=== PATIENT | female | born 1965 | race American Indian/Alaskan Native ===

== ENCOUNTER 2019-10-19 13:51 | Emergency (ER) | payer OTHER, MEDICAID, SELFPAY ==
[2019-10-19 13:56] VITALS: BP 202/92; PULSE 90; RESP 18; TEMP 36.7; O2SAT 97
--- NOTE | 2019-10-19 15:58 | DI.RAD.S_ITS ---
PROCEDURE: XR LUMBAR SPINE 2-3V INDICATIONS: non traumatic low back pain worse in right TECHNIQUE: 2 views of the lumbar spine were acquired. COMPARISON: [facility], , XR LUMBAR SPINE WITH OBLIQUES, 01/09/2018, 12:09. FINDINGS: Bones: No fracture or focal osseous destruction. Multilevel degenerative endplate sclerosis and spurring. Diffuse facet arthropathy. Mild lateral curvature of the spine. Moderate narrowing of the L5-S1 disc space. Mild to moderate narrowing of the L1-L2 and L2- L3 disc space. There is also lower thoracic spondylosis. Trace retrolisthesis of L1 on L2 and L2 on L3 Soft tissues: Overlying bowel gas pattern is normal. No suspicious soft tissue calcifications. IMPRESSION: Diffuse lumbar spondylosis and facet arthropathy, as pronounced at L5-S1. No interval change Dictated by: Rick Davis M.D. on 10/19/2019 at 16:43 Approved by: Rick Davis M.D. on 10/19/2019 at 16:46
[2019-10-19] MEDS: KETOROLAC 60 MG/2 ML VIAL 30 MG IM (16:17)
[2019-10-19] MEDS: CYCLOBENZAPRINE 10 MG TABLET PO (16:18)
[2019-10-19] MEDS: ACETAMINOPHEN 325 MG TABLET 650 MG PO (16:18)
[2019-10-19] MEDS: LIDOCAINE PATCH 1 EACH ADH..PATCH TOP (16:19)
[2019-10-19 16:35] VITALS: BP 181/81
[2019-10-19 16:42] VITALS: PULSE 71; RESP 16; O2SAT 100
--- NOTE | 2019-10-19 16:50 | ED.BACK ---
HPI - Back Pain/Injury <MARTHA Riggs - Last Filed: 10/19/19 23:32> General Chief Complaint: Back Pain/Injury Stated Complaint: pulled back hurting really bad Time Seen by Provider: 10/19/19 15:33 Source: patient Mode of arrival: Ambulatory Limitations: no limitations History of Present Illness HPI Narrative: This is a 54 year female, smoker, who presents to ED with chief complain of low back pain worsening on the right side for last 4 days. Patient reports she was moving a propane tank in her RV prior having low back pain. Patient reports pain increases with cough, elevating right-side arm, rotating/bending forward or extending her affected back. Patient denies saddle anesthesia, incontinence for urine or stool, increasing weakness to lower extremities. Patient denies urinary symptoms such as urgency, frequency, dysuria or hematuria. Patient has a history of lumbar diskectomy in 2001, left foot surgery, hypertension, diabetes, elevated lipids, kidney infection. She is currently sees pain specialist provider and takes oxycodone and pregabalin and her pain is not well managed and feels spasming on the low back. Patient uses a cane for ambulation usually. Related Data Home Medications Medication Instructions Recorded Confirmed bisoprolol fumarate 10 mg PO DAILY 10/19/19 10/19/19 cetirizine 10 mg PO DAILY 10/19/19 10/19/19 epinephrine 0.3 mg IM PRN PRN 10/19/19 10/19/19 glipizide 10 mg PO 10/19/19 losartan 50 mg PO DAILY 10/19/19 10/19/19 metformin 1,000 mg PO BID 10/19/19 10/19/19 morphine 30 mg PO Q12H 10/19/19 10/19/19 omeprazole 20 mg PO DAILY 10/19/19 10/19/19 oxycodone 5 mg PO TID 10/19/19 10/19/19 pregabalin 100 mg PO TID 10/19/19 10/19/19 rosuvastatin 40 mg 10/19/19 triamcinolone acetonide 1 applic TOPICAL BID 10/19/19 10/19/19 Previous Rx's Medication Instructions Recorded cyclobenzaprine 10 mg PO BID PRN #14 tab 10/19/19 lidocaine 1 patch TOP DAILY #30 each 10/19/19 Allergies Allergy/AdvReac Type Severity Reaction Status Date / Time amoxicillin Allergy Unknown Verified 10/19/19 14:00 cortisone AdvReac Unknown Verified 10/19/19 14:00 gabapentin AdvReac Unknown Verified 10/19/19 14:00 Review of Systems <ALESSIA RiggsP - Last Filed: 10/19/19 23:32> Review of Systems Narrative: General: Denies fever, chills, fatigue, malaise, sweats. HEENT: Denies sinus pain, ear pain, sore throat, difficulty swallowing, dizziness. Respiratory: Denies dyspnea, cough, wheezing, hemoptysis, sputum. Cardiovascular: Denies chest pain, palpitations, orthopnea, edema. Gastrointestinal: Denies nausea, vomiting, abdominal pain, diarrhea, constipation, melena. : Denies dysuria, frequency, incontinence, hematuria, urinary retention. Musculoskeletal: See HPI Skin: Denies rash, skin lesions, or other. Neurologic: Denies weakness, headache, numbness, change in speech, confusion, seizures, incoordination. Psychiatric: No concerning psychosocial issues. 12-point review of systems is negative except for those stated above. Patient History <ALESSIA RiggsP - Last Filed: 10/19/19 23:32> Social History Smoking Status: Current every day smoker Smoking Status: Current every day smoker alcohol intake frequency: 0-2 drinks per day Substance Use Type: does not use Exam <ALESSIA RiggsP - Last Filed: 10/19/19 23:32> Narrative Exam Narrative: General appearance: well developed, well nourished, in mild distress due to pain. Head: normocephalic, atraumatic, no scalp lesions, non-tender. ENT: Bilateral auditory canals and tympanic membranes clear. Hearing grossly intact. Nose without bleeding, purulent discharge, septal hematoma or deviation. Turbinate without erythema or swelling. Facial sinuses nontender to palpate. Mucous membrane moist, no mucosal lesion. Throat without erythema, tonsillar hypertrophy or exudate. Uvula in midline, airway patent. Neck/Thyroid: neck supple, full range of motion, no visible masses or meningeal signs. No JVD, non-tender without lymphadenopathy. Skin: no suspicious rashes, lesions over visible areas. Warm and dry and appropriate color for ethnicity. Heart: no clubbing, no cyanosis, no edema. S1 and S2 normal. RRR w/o murmurs, clicks, or bruits. Lungs: Breathing even and unlabored. No stridor. No accessory muscles used. Able to speak in full sentences. Chest: normal shape and expansion. Abdomen: non-obese, non-distended. Neurologic: alert and oriented. Cognitive exam, [employer] and PNS grossly intact on informal exam. Psych: good eye contact, normal affect. Initial Vital Signs Initial Vital Signs: Vital Signs Temperature 98.1 F 10/19/19 13:56 Pulse Rate 90 10/19/19 13:56 Respiratory Rate 18 10/19/19 13:56 Blood Pressure 202/92 H 10/19/19 13:56 Pulse Oximetry 97 10/19/19 13:56 Back/Spine/Pelvis Thoracic/Lumbar Spine: thoracic and lumbar spine normal to inspection, surgical scar(s) present (Lumbar region, without erythema or warmth.), No thoraco-lumbar ROM normal, bend over test abnormal, pain with thoraco-lumbar ROM, paraspinal tenderness, thoraco-lumbar ROM limited (Due to pain with forward flexion, rotation, extension), thoraco-lumbar spasm, lumbar spinal tenderness and straight leg raise positive (Right-sided) <Miles Kurtz MD - Last Filed: 10/26/19 17:58> Initial Vital Signs Initial Vital Signs: Vital Signs Temperature 98.1 F 10/19/19 13:56 Pulse Rate 90 10/19/19 13:56 Respiratory Rate 18 10/19/19 13:56 Blood Pressure 202/92 H 10/19/19 13:56 Pulse Oximetry 97 10/19/19 13:56 Scores <MARTHA Riggs - Last Filed: 10/19/19 23:32> GCS Rosenda coma scale eye opening: Spontaneous Rosenda coma scale verbal response: Orientated Rosenda coma scale motor response: Obey commands Donner coma scale total score: 15 Course <MARTHA Riggs - Last Filed: 10/19/19 23:32> Orders Ordered: Discontinued Medications Acetaminophen (Tylenol) 650 mg PO NOW ONE Stop: 10/19/19 15:59 Last Admin: 10/19/19 16:18 Dose: 650 mg Documented by: SHARRI Cyclobenzaprine HCl (Flexeril) 10 mg PO NOW ONE Stop: 10/19/19 15:59 Last Admin: 10/19/19 16:18 Dose: 10 mg Documented by: SHARRI Ketorolac Tromethamine (Toradol) 30 mg IM NOW ONE Stop: 10/19/19 15:59 Last Admin: 10/19/19 16:17 Dose: 30 mg Documented by: SHARRI Lidocaine (Lidoderm) 1 each TOP NOW ONE Stop: 10/19/19 15:59 Last Admin: 10/19/19 16:19 Dose: 1 each Documented by: SHARRI Vital Signs Vital signs: Vital Signs - 8 hr 10/19/19 16:35 10/19/19 16:42 10/19/19 18:02 Pulse Rate 71 75 Respiratory Rate 16 20 Blood Pressure 178/81 H Blood Pressure [Left Arm] 181/81 H Pulse Oximetry 100 98 <Miles Kurtz MD - Last Filed: 10/26/19 17:58> Orders Ordered: Discontinued Medications Acetaminophen (Tylenol) 650 mg PO NOW ONE Stop: 10/19/19 15:59 Last Admin: 10/19/19 16:18 Dose: 650 mg Documented by: SHARRI Cyclobenzaprine HCl (Flexeril) 10 mg PO NOW ONE Stop: 10/19/19 15:59 Last Admin: 10/19/19 16:18 Dose: 10 mg Documented by: SHARRI Ketorolac Tromethamine (Toradol) 30 mg IM NOW ONE Stop: 10/19/19 15:59 Last Admin: 10/19/19 16:17 Dose: 30 mg Documented by: SHARRI Lidocaine (Lidoderm) 1 each TOP NOW ONE Stop: 10/19/19 15:59 Last Admin: 10/19/19 16:19 Dose: 1 each Documented by: SHARRI Vital Signs Vital signs: Vital Signs - 8 hr 10/19/19 16:35 10/19/19 16:42 10/19/19 18:02 Pulse Rate 71 75 Respiratory Rate 16 20 Blood Pressure 178/81 H Blood Pressure [Left Arm] 181/81 H Pulse Oximetry 100 98 MDM - Back Pain/Injury <MARTHA Riggs - Last Filed: 10/19/19 23:32> Differential Diagnosis Differential diagnosis: Likely lumbar radiculopathy, sciatica, strain of lumbar region and pyelonephritis Medical Records Attestation: I reviewed the patient's medical records. Lab Data Labs: Urine Dip Bedside Urine Glucose 1000 mg/dl Bedside Urine Bilirubin - Negative Bedside Urine Ketone - Negative Urine Specific Preston 1.010 Bedside Urine Occult Blood - Negative Bedside Urine pH 6.0 Bedside Urine Protein - Negative Bedside Urine Urobilinogen - Negative Bedside Urine Nitrite - Negative Bedside Urine Leukocytes - Negative Esterase Imaging Data XR-Lumbar: Radiologist's Impression: [address] [address] XRay Report Signed Patient: Rosalinda Hammonds#: [id number] : 1965Acct:[id number] Age/Sex: 54 / FDate of Service: 10/19/19 Loc: ED Accession Number: [id number] Procedure: XR lumbar spine 2-3V Ordering Provider: Slim Velazquez PROCEDURE: XR LUMBAR SPINE 2-3V INDICATIONS: non traumatic low back pain worse in right TECHNIQUE: 2 views of the lumbar spine were acquired. COMPARISON: [facility], , XR LUMBAR SPINE WITH OBLIQUES, 01/09/2018, 12:09. FINDINGS: Bones: No fracture or focal osseous destruction. Multilevel degenerative endplate sclerosis and spurring. Diffuse facet arthropathy. Mild lateral curvature of the spine. Moderate narrowing of the L5-S1 disc space. Mild to moderate narrowing of the L1-L2 and L2- L3 disc space. There is also lower thoracic spondylosis. Trace retrolisthesis of L1 on L2 and L2 on L3 Soft tissues: Overlying bowel gas pattern is normal. No suspicious soft tissue calcifications. IMPRESSION: Diffuse lumbar spondylosis and facet arthropathy, as pronounced at L5-S1. No interval change Dictated by: Rick Davis M.D. on 10/19/2019 at 16:43 Approved by: Rick Davis M.D. on 10/19/2019 at 16:46 MDM Narrative Medical decision making narrative: This is a 54 year female who presents to ED with nontraumatic low back pain worse in right-sided with movements after she moved propane tank in 4 days ago. There is no neurological deficit, incontinence, weakness to lower extremities. Urine test was negative for infection or occult blood. Lumbar x-ray test showed diffuse lumbar spondylolysis and facet arthropathy bounced at L5 through S1. Patient was medicated with Flexeril, lidocaine patch, Tylenol and IM Toradol injection. Patient reports pain improved after these medications and discharged to home with lidocaine patch, Flexeril. Patient is already taking oxycodone and pregabalin for pain management. Advised to add Tylenol and ibuprofen as needed. Return precautions were discussed with the patient and advised to follow with PCP and referral to physical therapist and patient states she has an appointment for chiropractor in a few days. Patient verbalized understanding and in agreement with treatment plan. Patient's elevated blood pressure has improved after the pain was treated with medications. <Miles Kurtz MD - Last Filed: 10/26/19 17:58> Lab Data Labs: Urine Dip Bedside Urine Glucose 1000 mg/dl Bedside Urine Bilirubin - Negative Bedside Urine Ketone - Negative Urine Specific Preston 1.010 Bedside Urine Occult Blood - Negative Bedside Urine pH 6.0 Bedside Urine Protein - Negative Bedside Urine Urobilinogen - Negative Bedside Urine Nitrite - Negative Bedside Urine Leukocytes - Negative Esterase Discharge Plan Departure Patient Disposition: Home Clinical Impression: Strain of lumbar region Qualifiers: Encounter type: initial encounter Qualified Code(s): S39.012A - Strain of muscle, fascia and tendon of lower back, initial encounter Discharge Date/Time: 10/19/19 18:00 Activity Restrictions/Additional Instructions: You have been diagnosed with [low back pain. Show fractures or osseous lesions. X-ray test showed I fused lumbar spondylolysis and facet arthropathy (arthritis changes) as pronounced at L5 and S1. Urine test does not indicate infection or blood in your urine. However, urine shows glucose. Please monitor your diabetes]. What to do: *Take your medications as directed. Flexeril is for muscle relaxant in may cause drowsiness so please take precautions. Lidocaine patch for pain and this stays on for 12 hours and off for 12 hours. If your medical insurance does not cover for lidocaine patch, you can purchase [id number] for 4% patch. You can add [id number] Tylenol and in addition to your pain medications as needed. Please rest your back for acute pain but start stretching gently when acute pain subsides. This medication has been transmitted to [facility]. *Follow up with your primary care provider in 2-3 days, call for an appointment. Let them know you were seen in the ED and that we asked you to be seen in follow up. Please follow-up with chiropractor or physical therapist for an evaluation and treatment for back pain. *Return to ED if you have any new, worsening, or concerning symptoms, such as [chest pain, breathing difficulty, unable to tolerate fluids, weakness to her legs, numbness to her groin or incontinence problem, fever or any acute concerns]. Prescriptions: New lidocaine 5 % adhesive patch,medicated 1 patch TOP DAILY Qty: 30 RF: 0 cyclobenzaprine 10 mg tablet 10 mg PO BID PRN (Reason: muscle spasm) Qty: 14 RF: 0 No Action losartan 50 mg tablet 50 mg PO DAILY RF: 0 cetirizine 10 mg tablet 10 mg PO DAILY RF: 0 glipizide 10 mg tablet extended release 24hr 10 mg PO RF: 0 morphine 30 mg tablet extended release 30 mg PO Q12H RF: 0 bisoprolol fumarate 10 mg tablet 10 mg PO DAILY RF: 0 omeprazole 20 mg capsule,delayed release(DR/EC) 20 mg PO DAILY RF: 0 epinephrine 0.3 mg/0.3 mL auto-injector 0.3 mg IM PRN PRN (Reason: Allergic Reaction) RF: 0 metformin 500 mg tablet extended release 24 hr 1,000 mg PO BID RF: 0 oxycodone 5 mg tablet 5 mg PO TID RF: 0 rosuvastatin 20 mg tablet 40 mg RF: 0 pregabalin 100 mg capsule 100 mg PO TID RF: 0 triamcinolone acetonide 0.1 % cream 1 applic TOPICAL BID RF: 0
[2019-10-19 18:02] VITALS: BP 178/81; PULSE 75; RESP 20; O2SAT 98
--- NOTE | 2019-10-19 18:03 | PC.NURSE ---
Patient states that her friend is here to pick her up
== END 2019-10-19 18:00 | disposition home or self-care (01) ==
PROVIDERS: Emergency Provider Nurse Practitioner Family
DX: S39.012A Strain of muscle, fascia and tendon of lower back, initial encounter (principal); M47.816 Spondylosis without myelopathy or radiculopathy, lumbar region
CPT/HCPCS: 72100; 81003; 96372; 99283; 99284; J1885

== ENCOUNTER 2019-12-18 11:03 | Emergency (ER) | payer OTHER, MEDICAID, SELFPAY ==
[2019-12-18 11:25] VITALS: BP 206/90; PULSE 80; RESP 12; TEMP 36.2; O2SAT 96
--- NOTE | 2019-12-18 11:40 | DI.RAD.S_ITS ---
PROCEDURE: XR CHEST 1V INDICATIONS: chest pain TECHNIQUE: One view of the chest was acquired. COMPARISON: None. FINDINGS: Surgical changes and devices: None. Lungs and pleura: Lungs are clear. No pleural effusions or pneumothorax. Mediastinum: Mediastinal contours appear normal. Heart size is normal. Bones and chest wall: No suspicious bony lesions. Overlying soft tissues appear unremarkable. IMPRESSION: Normal for age, source of current chest pain symptoms is not seen. Dictated by: Taco Warren M.D. on 12/18/2019 at 12:19 Approved by: Taco Warren M.D. on 12/18/2019 at 12:19
[2019-12-18 12:20] VITALS: BP 222/94; PULSE 90; RESP 14; O2SAT 99
[2019-12-18 12:26] LABS: Add Manual Diff / Slide Review NO; Basophils Absolute Auto 100 /uL (0-100); Basophils Percent Auto 1.3 % (0-2); Eosinophils Absolute Auto 100 /uL (0-450); Eosinophils Percent Auto 2.2 % (2-4); Hematocrit 39.6 % (36-46); Hemoglobin 13.7 g/dL (12.0-16.0); Lymphocytes Absolute Auto 1900 /uL (1100-4500); Lymphocytes Percent Auto 28.8 % (25-40); Mean Corpuscular HGB Conc 34.5 % (30-36); Mean Corpuscular Hemoglobin 32.7 PG (26-34); Mean Corpuscular Volume 94.6 fL (80-100); Monocytes Absolute Auto 500 /uL (0-900); Neutrophils Absolute Auto 3900 /uL (1500-7000); Neutrophils Percent Auto 59.7 % (50-75); Platelet Count 147 X10^3/uL (150-400); Red Blood Cell Count 4.19 X10^6/uL (4.0-5.2); White Blood Cell Count 6.5 X10^3/uL (4.5-11.0)
--- NOTE | 2019-12-18 12:31 | ED_ITS ---
HPI - General Adult General Chief complaint: Hypertension Stated complaint: HIGH BP/ NOT FEELING WELL Time Seen by Provider: 12/18/19 12:15 Mode of arrival: Ambulatory History of Present Illness HPI narrative: CC: High blood pressure. HPI: Patient is a 54-year-old female who states that she has intermittent hypertension with her blood pressure being 206/90 on admission. She states that she woke up and felt weird. She stated that she had some tingling in her head and arm freaked out when she checked her blood pressure. She has had some mild shortness of breath. She has had no chest pain today. She states that she has had some fluttering in her chest. And she had a minimal slight headache. She had no chest tightness. She had no nausea or vomiting. The patient is very anxious and worried because her blood pressure it keeps going up. Related Data Home Medications Medication Instructions Recorded Confirmed bisoprolol fumarate 10 mg PO DAILY 10/19/19 10/19/19 cetirizine 10 mg PO DAILY 10/19/19 10/19/19 epinephrine 0.3 mg IM PRN PRN 10/19/19 10/19/19 glipizide 10 mg PO 10/19/19 losartan 50 mg PO DAILY 10/19/19 10/19/19 metformin 1,000 mg PO BID 10/19/19 10/19/19 morphine 30 mg PO Q12H 10/19/19 10/19/19 omeprazole 20 mg PO DAILY 10/19/19 10/19/19 oxycodone 5 mg PO TID 10/19/19 10/19/19 pregabalin 100 mg PO TID 10/19/19 10/19/19 rosuvastatin 40 mg 10/19/19 triamcinolone acetonide 1 applic TOPICAL BID 10/19/19 10/19/19 Previous Rx's Medication Instructions Recorded cyclobenzaprine 10 mg PO BID PRN #14 tab 10/19/19 lidocaine 1 patch TOP DAILY #30 each 10/19/19 Allergies Allergy/AdvReac Type Severity Reaction Status Date / Time amoxicillin Allergy Unknown Verified 10/19/19 14:00 cortisone AdvReac Unknown Verified 10/19/19 14:00 gabapentin AdvReac Unknown Verified 10/19/19 14:00 Review of Systems Review of Systems Narrative: REVIEW OF SYSTEMS: CONSTITUTIONAL: The patient denies any fever chills or sweats. NEUROLOGICAL: She has had intermittent headaches but none at the present time. She denies any numbness but has had periodic tingling paresthesias without paralysis or paresis. EENT: She denies any dysphagia sore throat difficulty in swallowing. Last week she had and nose bleed. CARDIO-PULMONARY: She has had rare chest pain but none at the present time she has had pounding of her heart and shortness of breath without any cough or dizziness. GASTROINTESTINAL: She denies any significant abdominal pain nausea vomiting diarrhea. GENITAL URINARY: She has had no dysuria. No urinary symptoms Patient History Social History Smoking Status: Current every day smoker Smoking Status: Current every day smoker alcohol intake frequency: 0-2 drinks per day Substance Use Type: does not use Exam Narrative Exam Narrative: PHYSICAL EXAM: CONSTITUTIONAL: Awake, Alert, Oriented, Coherent, Cooperative in NAD. Does not appear toxic or ill. HEAD: AT/NC EENT: PERRL, FROM of eyes, no discharge, no nystagmus MOUTH:Oral mucosa is moist and pink, posterior pharynx is without erythema or exudate. The patient is wearing a mask. NECK: Supple, no obvious JVD, Trachea is midline without stridor, no palpable LN. SPINE: Palpationof the cervical, Thoracic, Lumbar or Sacral spine reveals no gross deformity or tenderness. No CVA tenderness. THORAX: No deformity, retractions, chest wall tenderness. LUNGS: Clear, symmetrical breath sounds without respiratory distress. HEART: Normal heart tones, regular rhythm and rate without murmur. ABDOMEN: Soft, non-tender, normal bowel sounds without guarding, rebound, rigidity or palpable mass. EXTREMITIES: No edema, deformity, tenderness or cyanosis. SKIN: No rash, bruising, petechiae or purpura. NEURO: Awake, alert, oriented, conversive, cranial nerves II-XII are symmetrical , moves all 4 extremities and is ambulatory. Initial Vital Signs Initial Vital Signs: Vital Signs Temperature 97.1 F L 12/18/19 11:25 Pulse Rate 80 12/18/19 11:25 Respiratory Rate 12 12/18/19 11:25 Blood Pressure 206/90 H 12/18/19 11:25 Pulse Oximetry 96 12/18/19 11:25 Course Course Course Narrative: 1231: The patient's chest x-ray is negative and does not show any acute cardiopulmonary pathology. The patient's blood pressure is 222/94. The patient will be administered p.o. Ativan 1 mg for the believe she is very anxious. She will be administered 10 mg of hydralazine IV push. Orders Ordered: ED Orders 12/18/19 11:40 XR chest 1V Stat 12/18/19 12:20 Complete Blood Count AUTO DIFF Stat Comprehensive Metabolic Panel Stat Lipase Stat Magnesium Stat Partial Thromboplastin Time Stat Prothrombin Time INR Stat Troponin & CK Cardiac Panel Stat Discontinued Medications Hydralazine HCl (Apresoline) 10 mg IV NOW ONE Stop: 12/18/19 12:31 Last Admin: 12/18/19 12:41 Dose: 10 mg Documented by: SHANKAR Sodium Chloride (Normal Saline 0.9%) 1,000 mls @ 125 mls/hr IV BOLUS ONE Stop: 12/18/19 20:32 Last Infusion: 12/18/19 13:32 Dose: 0 mls/hr Documented by: Admin: 12/18/19 12:42 Dose: 125 mls/hr Documented by: SHANKAR Lorazepam (Ativan) 1 mg PO NOW ONE Stop: 12/18/19 12:31 Last Admin: 12/18/19 12:40 Dose: 1 mg Documented by: SHANKAR Vital Signs Vital signs: Vital Signs - 8 hr 12/18/19 11:25 12/18/19 12:20 12/18/19 12:41 Temperature 97.1 F L Pulse Rate 80 90 70 Respiratory Rate 12 14 Blood Pressure 206/90 H 189/89 H Blood Pressure [Left Arm] 222/94 H Pulse Oximetry 96 99 12/18/19 13:05 Temperature Pulse Rate 81 Respiratory Rate 14 Blood Pressure Blood Pressure [Left Arm] 180/79 H Pulse Oximetry 99 Medical Decision Making Lab Data Result diagrams: 12/18/19 12:20 12/18/19 12:20 Labs: Lab Results 12/18/19 12/18/19 12/18/19 Range/Units 12:20 12:20 12:20 WBC 6.5 (4.5-11.0) X10^3/uL RBC 4.19 (4.0-5.2) X10^6/uL Hgb 13.7 (12.0-16.0) g/dL Hct 39.6 (36-46) % MCV 94.6 (80-100) fL MCH 32.7 (26-34) PG MCHC 34.5 (30-36) % RDW 13.0 (11.6-14.8) % Plt Count 147 L (150-400) X10^3/uL Neut % (Auto) 59.7 (50-75) % Lymph % (Auto) 28.8 (25-40) % [place] % (Auto) 8.0 (3-14) % Eos % (Auto) 2.2 (2-4) % Baso % (Auto) 1.3 (0-2) % Neut # (Auto) 3900 (3827-2077) /uL Lymph # (Auto) 1900 (7749-6118) /uL [place] # (Auto) 500 (0-900) /uL Eos # (Auto) 100 (0-450) /uL Baso # (Auto) 100 (0-100) /uL PT 12.0 (10.1-12.7) SECONDS INR 1.0 (0.9-1.3) APTT 35 (26.4-36.2) SECONDS Sodium 136 L (137-145) mmol/L Potassium 3.9 (3.4-5.1) mmol/L Chloride 103 (98-107) mmol/L Carbon Dioxide 26 (22-32) mmol/L BUN 6 L (7-17) mg/dL Creatinine 0.42 L (0.52-1.04) mg/dL Estimated GFR > 60.0 (>60) mL/min BUN/Creatinine Ratio 14.3 (6-22) Glucose 253 H (70-100) mg/dL Calcium 9.0 (8.4-10.2) mg/dL Magnesium 1.8 (1.6-2.3) mg/dL Total Bilirubin 0.6 (0.2-1.3) mg/dL AST 28 (14-36) IU/L ALT 20 (<35) IU/L Alkaline Phosphatase 95 (38-126) U/L Total Creatine Kinase 77 (30-135) U/L CK-MB (CK-2) TNP CK-MB (CK-2) Rel Index TNP Troponin I < 0.012 (0.01-0.034) ng/mL Total Protein 6.8 (6.3-8.2) g/dL Albumin 3.8 (3.5-5.0) g/dL Globulin 3.0 (1.7-4.1) g/dL Albumin/Globulin Ratio 1.3 (1.0-2.8) Lipase 62 (23-300) U/L Urine Dip Bedside Urine Glucose 250 mg/dl Bedside Urine Bilirubin - Negative Bedside Urine Ketone - Negative Urine Specific [place] 1.005 Bedside Urine Occult Blood - Negative Bedside Urine pH 6.0 Bedside Urine Protein - Negative Bedside Urine Urobilinogen - Negative Bedside Urine Nitrite - Negative Bedside Urine Leukocytes - Negative Esterase Point of care testing: Urine Dip Bedside Urine Glucose 250 mg/dl Bedside Urine Bilirubin - Negative Bedside Urine Ketone - Negative Urine Specific [place] 1.005 Bedside Urine Occult Blood - Negative Bedside Urine pH 6.0 Bedside Urine Protein - Negative Bedside Urine Urobilinogen - Negative Bedside Urine Nitrite - Negative Bedside Urine Leukocytes - Negative Esterase Discharge Plan Departure Patient Disposition: Home Clinical Impression: Anxiety Hypertension Qualifiers: Hypertension type: essential hypertension Qualified Code(s): I10 - Essential (primary) hypertension Discharge Date/Time: 12/18/19 13:32 Instructions: DI for High Blood Pressure, DI for Anxiety -- Adult Activity Restrictions/Additional Instructions: 1. Follow-up with your primary care physician. 2. When you check your blood pressure check and only once during the daytime and do not keep rechecking it. As she continued to recheck your blood pressure is going to go up. 3. Take your blood pressure medicine and record your blood pressure as instructed by your primary care physician and recorded in a log to take to your primary care physician. While you are on blood pressure medication your blood pressure is not always going to be low. Your blood pressure varies. If you become anxious nervous or upset your blood pressure is going to go high despite being on blood pressure medications. Periodically will have some minor shortness of breath in you may have brief periods of a headache. However if you develop severe headache that is up prolonged headache chest pain or continuous persistent shortness of breath with your high blood pressure changes in your vision you need to be seen in the emergency department otherwise you follow-up with your primary care physician. 4. Continue your current blood pressure medications. Prescriptions: No Action losartan 50 mg tablet 50 mg PO DAILY RF: 0 cetirizine 10 mg tablet 10 mg PO DAILY RF: 0 glipizide 10 mg tablet extended release 24hr 10 mg PO RF: 0 morphine 30 mg tablet extended release 30 mg PO Q12H RF: 0 bisoprolol fumarate 10 mg tablet 10 mg PO DAILY RF: 0 omeprazole 20 mg capsule,delayed release(DR/EC) 20 mg PO DAILY RF: 0 epinephrine 0.3 mg/0.3 mL auto-injector 0.3 mg IM PRN PRN (Reason: Allergic Reaction) RF: 0 metformin 500 mg tablet extended release 24 hr 1,000 mg PO BID RF: 0 oxycodone 5 mg tablet 5 mg PO TID RF: 0 rosuvastatin 20 mg tablet 40 mg RF: 0 pregabalin 100 mg capsule 100 mg PO TID RF: 0 triamcinolone acetonide 0.1 % cream 1 applic TOPICAL BID RF: 0 lidocaine 5 % adhesive patch,medicated 1 patch TOP DAILY Qty: 30 RF: 0 cyclobenzaprine 10 mg tablet 10 mg PO BID PRN (Reason: muscle spasm) Qty: 14 RF: 0
[2019-12-18 12:38] LABS: PTT Partial Thromboplastin Tim 35 SECONDS (26.4-36.2)
[2019-12-18 12:40] LABS: Alanine Aminotransferase 20 IU/L (<35); Albumin 3.8 g/dL (3.5-5.0); Albumin Globulin Ratio 1.3 (1.0-2.8); Alkaline Phosphatase 95 U/L (38-126); Aspartate Aminotransferase 28 IU/L (14-36); BUN Creatinine Ratio 14.3 (6-22); Bilirubin Total 0.6 mg/dL (0.2-1.3); Blood Urea Nitrogen 6 mg/dL (7-17); Carbon Dioxide 26 mmol/L (22-32); Chloride 103 mmol/L (98-107); Creatine Kinase 77 U/L (30-135); Estimated Glomerular Filt Rate > 60.0 mL/min (>60); Glucose 253 mg/dL (70-100); HEMOLYSIS < 15 (0-50); Lipase 62 U/L (23-300); Magnesium 1.8 mg/dL (1.6-2.3); Potassium 3.9 mmol/L (3.4-5.1); Sodium 136 mmol/L (137-145); Total Protein 6.8 g/dL (6.3-8.2)
[2019-12-18] MEDS: LORazepam 0.5 MG TABLET 1 MG PO (12:40)
[2019-12-18 12:41] VITALS: BP 189/89; PULSE 70
[2019-12-18] MEDS: HYDRALAZINE 20 MG/ML VIAL 10 MG IV (12:41)
[2019-12-18] MEDS: SODIUM CHLORIDE 0.9% 1,000 ML 125 ML IV (12:42)
[2019-12-18 12:51] LABS: Troponin I < 0.012 ng/mL (0.01-0.034)
[2019-12-18 13:05] VITALS: BP 180/79; PULSE 81; RESP 14; O2SAT 99
== END 2019-12-18 13:32 | disposition home or self-care (01) ==
PROVIDERS: Emergency Provider Emergency Medicine
DX: F41.9 Anxiety disorder, unspecified (principal); I10 Essential (primary) hypertension; R06.02 Shortness of breath
CPT/HCPCS: 36415; 71045; 80053; 81003; 82550; 83690; 83735; 84484; 85025; 85610; 85730; 93005; 96361; 96374; 99284; J0360

== ENCOUNTER → 2020-06-10 10:49 | Outpatient (CLI) | payer OTHER, MEDICAID, SELFPAY ==
--- NOTE | 2020-06-10 | DI.RAD.S_ITS ---
PROCEDURE: XR LUMBAR SPINE 2-3V INDICATIONS: NEUROPATHY, UE AND LE PAIN AND SHOULDER PROBLEMS AND DEPRESS TECHNIQUE: 3 views of the lumbar spine were acquired. COMPARISON: [facility], CR, XR LUMBAR SPINE 2-3V, 10/19/2019, 16:13. FINDINGS: Bones: 5 [id number] vertebrae are present. There is normal bony alignment, but degenerative disc disease appears to have mildly worsened at L5-S1 and now is moderately severe with further disc height reduction. Facet osteoarthritis is moderate in severity that L3-4 and L4-5 and moderately severe at L5-S1.. No vertebral body compression fractures. No suspicious bony lesions. Soft tissues: Overlying bowel gas pattern is normal. No suspicious soft tissue calcifications. IMPRESSION: Apparent progression of degenerative changes at the L5-S1 level where significant spinal and foraminal stenosis would now be expected, without subluxation. Follow-up by MR scanning may be warranted given the clear evidence of progression by plain film and symptomatology. Dictated by: Taco Warren M.D. on 06/10/2020 at 12:48 Approved by: Taco Warren M.D. on 06/10/2020 at 12:49
== END ==
DX: M54.5 Low back pain (principal); M47.817 Spondylosis without myelopathy or radiculopathy, lumbosacral region; M47.816 Spondylosis without myelopathy or radiculopathy, lumbar region; M51.37 Other intervertebral disc degeneration, lumbosacral region; G62.9 Polyneuropathy, unspecified; M79.603 Pain in arm, unspecified; M79.606 Pain in leg, unspecified
CPT/HCPCS: 72100

== ENCOUNTER 2020-06-26 14:29 | Emergency (ER) | payer OTHER, MEDICAID, SELFPAY ==
[2020-06-26 14:54] VITALS: BP 174/83; PULSE 88; RESP 15; TEMP 37; O2SAT 98; BMI 29.9
== END 2020-06-26 16:33 | disposition left against medical advice (07) ==
PROVIDERS: Emergency Provider Emergency Medicine
CPT/HCPCS: 99281

== ENCOUNTER → 2020-11-05 15:23 | Outpatient (CLI) | payer OTHER, MEDICAID, SELFPAY ==
[2020-11-05] MEDS: COVID-19 VACC #1, MRNA(MOD) 100 MCG/0.5 ML VIAL IM (15:35)
== END ==
PROVIDERS: Visit Provider Internal Medicine
DX: Z23 Encounter for immunization (principal)
CPT/HCPCS: 0011A; 91301

== ENCOUNTER → 2020-12-03 15:13 | Outpatient (CLI) | payer OTHER, MEDICAID, SELFPAY ==
[2020-12-03] MEDS: COVID-19 VACC #2, MRNA(MOD) 100 MCG/0.5 ML VIAL IM (15:23)
== END ==
PROVIDERS: Visit Provider Internal Medicine
DX: Z23 Encounter for immunization (principal)
CPT/HCPCS: 0012A; 91301

== ENCOUNTER → 2021-06-19 09:45 | Outpatient (CLI) | payer OTHER, MEDICAID, SELFPAY ==
[2021-06-19] MEDS: COVID-19 VACC #3, MRNA(MOD) 50 MCG/0.25 ML VIAL IM (09:51)
== END ==
PROVIDERS: Visit Provider Internal Medicine
DX: Z23 Encounter for immunization (principal)
CPT/HCPCS: 0013A; 91301

== ENCOUNTER 2022-01-11 14:34 | Emergency (ER) | payer OTHER, MEDICAID, SELFPAY ==
[2022-01-11 14:51] VITALS: BP 182/100; PULSE 110; RESP 18; TEMP 36.4; O2SAT 97; BMI 28.8
[2022-01-11] MEDS: ONDANSETRON 4 MG/2 ML INJ IV (15:30)
[2022-01-11 15:31] LABS: Add Manual Diff / Slide Review NO; Basophils Absolute Auto 100 /uL (0-100); Eosinophils Absolute Auto 0 /uL (0-450); Eosinophils Percent Auto 0.6 % (2-4); Hematocrit 44.7 % (36-46); Hemoglobin 15.7 g/dL (12.0-16.0); Lymphocytes Absolute Auto 1700 /uL (1100-4500); Lymphocytes Percent Auto 21.8 % (25-40); Mean Corpuscular HGB Conc 35.1 % (30-36); Mean Corpuscular Hemoglobin 32.4 PG (26-34); Mean Corpuscular Volume 92.4 fL (80-100); Monocytes Absolute Auto 500 /uL (0-900); Monocytes Percent Auto 6.3 % (3-14); Neutrophils Absolute Auto 5600 /uL (1500-7000); Neutrophils Percent Auto 70.3 % (50-75); Platelet Count 193 X10^3/uL (150-400); Red Blood Cell Count 4.84 X10^6/uL (4.0-5.2); Red Cell Distribution Width 12.6 % (11.6-14.8)
[2022-01-11 15:45] LABS: Alanine Aminotransferase 35 IU/L (<35); Albumin 4.7 g/dL (3.5-5.0); Albumin Globulin Ratio 1.3 (1.0-2.8); Alkaline Phosphatase 97 U/L (38-126); Aspartate Aminotransferase 28 IU/L (14-36); BUN Creatinine Ratio 11.5 (6-22); Bilirubin Total 0.8 mg/dL (0.2-1.3); Blood Urea Nitrogen 7 mg/dL (7-17); Calcium 9.6 mg/dL (8.4-10.2); Carbon Dioxide 31 mmol/L (22-32); Chloride 102 mmol/L (98-107); Estimated Glomerular Filt Rate > 60 mL/min (>60); Globulin 3.6 g/dL (1.7-4.1); Glucose 107 mg/dL (70-100); HEMOLYSIS < 15 (0-50); Potassium 3.6 mmol/L (3.4-5.1); Sodium 140 mmol/L (137-145); Total Protein 8.3 g/dL (6.3-8.2)
[2022-01-11] MEDS: PANTOPRAZOLE 40 MG VIAL IV (17:59)
[2022-01-11] MEDS: MAG HYDROX/ALUMINUM/SIMETH SUS 20 ML, LIDOCAINE VISCOUS 2% 15 ML PO (17:59)
--- NOTE | 2022-01-11 19:04 | ED_ITS ---
HPI - GI Bleed <Zakia Austin PA-C - Last Filed: 01/11/22 21:01> General Chief complaint: GI Bleed Stated complaint: Vomiting all day. Some blood came up, dizzy Time Seen by Provider: 01/11/22 17:28 Source: patient Mode of arrival: Ambulatory History of Present Illness HPI Narrative: 56-year-old female with past medical history Charles's esophagus presents to the ED with 1 day of epigastric pain, nausea, vomiting. Patient endorses a small amount, which she describes as a few drops of bright red blood in the vomit. Patient takes Pepcid AC daily for the Charles's esophagus. Patient was scheduled for an endoscopy for tomorrow, however was canceled due to her COVID diagnosis 2 weeks ago. The endoscopy has been rescheduled for the end of January. Patient states that the endoscopy is a follow-up to work up her ongoing swallowing problems. Patient denies fever, chills, chest pain, shortness of breath, diarrhea, dysuria, lightheadedness, dizziness, syncope. Related Data Home Medications Medication Instructions Recorded Confirmed bisoprolol fumarate 10 mg tablet 10 mg PO DAILY 10/19/19 10/19/19 cetirizine 10 mg tablet 10 mg PO DAILY 10/19/19 10/19/19 epinephrine 0.3 mg/0.3 mL 0.3 mg IM PRN PRN 10/19/19 10/19/19 injection, auto-injector glipizide 10 mg tablet, extended 10 mg PO 10/19/19 release 24 hr losartan 50 mg tablet 50 mg PO DAILY 10/19/19 10/19/19 metformin 500 mg tablet,extended 1,000 mg PO BID 10/19/19 10/19/19 release 24 hr morphine 30 mg tablet,extended 30 mg PO Q12H 10/19/19 10/19/19 release omeprazole 20 mg capsule,delayed 20 mg PO DAILY 10/19/19 10/19/19 release oxycodone 5 mg tablet 5 mg PO TID 10/19/19 10/19/19 pregabalin 100 mg capsule 100 mg PO TID 10/19/19 10/19/19 rosuvastatin 20 mg tablet 40 mg 10/19/19 triamcinolone acetonide 0.1 % 1 applic TOPICAL BID 10/19/19 10/19/19 topical cream Previous Rx's Medication Instructions Recorded cyclobenzaprine 10 mg tablet 10 mg PO BID PRN #14 tab 10/19/19 lidocaine 5 % topical patch 1 patch TOP DAILY #30 each 10/19/19 ondansetron 4 mg disintegrating 4 mg PO Q8HR #14 tab 01/11/22 tablet Allergies Allergy/AdvReac Type Severity Reaction Status Date / Time amoxicillin Allergy Unknown Verified 01/11/22 14:55 cortisone AdvReac Unknown Verified 01/11/22 14:55 gabapentin AdvReac Unknown Verified 01/11/22 14:55 Review of Systems <Zakia Austin PA-C - Last Filed: 01/11/22 21:01> Review of Systems ROS Unobtainable: All systems reviewed & are unremarkable except as noted in HPI and below Constitutional Constitutional: Denies chills, Denies fatigue, Denies fever(s), Denies frequent falls, Denies lethargy and Denies weakness Eyes Eyes: Denies change in vision, Denies eye discharge, Denies irritation and Denies loss of vision ENT Ears, Nose, Mouth, and Throat: Denies change in voice, Denies dizziness, Denies neck pain, Denies sore throat and Denies throat swelling Cardiovascular Cardiovascular: Denies chest pain, Denies irregular heart rhythm, Denies lightheadedness, Denies palpitations, Denies dyspnea, Denies dyspnea on exertion and Denies orthopnea Respiratory Respiratory: Denies cough, Denies dyspnea, Denies dyspnea on exertion and Denies wheezing Gastrointestinal Gastrointestinal: Reports abdominal pain, Denies change in bowel habits, Denies diarrhea, Reports nausea and Reports vomiting Genitourinary Genitourinary: Denies hematuria, Denies flank pain, Denies urinary incontinence and Denies urinary urgency Musculoskeletal Musculoskeletal: Denies back pain, Denies muscle weakness, Denies neck pain, Denies numbness and Denies tingling Integumentary/Breasts Skin/Breast: Denies pruritus, Denies erythema, Denies rash and Denies wounds Neurologic Neurologic: Denies behavioral changes, Denies confusion, Denies dizziness, Denies frequent falls, Denies loss of vision, Denies numbness, Denies tingling and Denies weakness Psychiatric Psychiatric: Denies anxiety, Denies behavioral changes, Denies confusion, Denies depression, Denies homicidal ideation and Denies suicidal ideation Endocrine Endocrine: Denies fatigue, Denies flushing and Denies palpitations Hematologic/Lymphatic Hematologic/Lymphatic: Denies easy bruising Allergic/Immunologic Allergic/Immunologic: Denies urticaria, Denies throat swelling and Denies wheezing Patient History <Zakia Austin PA-C - Last Filed: 01/11/22 21:01> Social History Smoking Status: Current every day smoker Smoking Status: Current every day smoker alcohol intake frequency: holidays/special occasions only Substance Use Type: does not use Exam <Zakia Austin PA-C - Last Filed: 01/11/22 21:01> Narrative Exam Narrative: Const General:?cooperative, healthy appearing and comfortable [facility] Head:?normal to inspection Ears:?hearing grossly normal bilaterally Nose:?external nose normal Face and sinus:?normal facial exam and sinuses nontender Mouth:?oral mucosae normal Throat:?posterior oropharynx normal Eyes General:?appearance normal, both eyes and all related structures Neck Neck:?normal visual inspection and no lymphadenopathy noted Resp Effort & Inspection:?normal respiratory effort Auscultation:?clear to auscultation bilaterally Cardio Rate:?regular rate Rhythm:?regular rhythm GI Abdomen is soft, nondistended. Tender to palpation in the epigastric region Neuro General:?patient alert, patient awake and patient oriented x3 Initial Vital Signs Initial Vital Signs: Vital Signs Temperature 97.6 F 01/11/22 14:51 Pulse Rate 110 H 01/11/22 14:51 Respiratory Rate 18 01/11/22 14:51 Blood Pressure 182/100 H 01/11/22 14:51 Pulse Oximetry 97 01/11/22 14:51 <Natividad Collado DO - Last Filed: 01/13/22 07:14> Initial Vital Signs Initial Vital Signs: Vital Signs Temperature 97.6 F 01/11/22 14:51 Pulse Rate 110 H 01/11/22 14:51 Respiratory Rate 18 01/11/22 14:51 Blood Pressure 182/100 H 01/11/22 14:51 Pulse Oximetry 97 01/11/22 14:51 Course <Zakia Austin PA-C - Last Filed: 01/11/22 21:01> Orders Ordered: Discontinued Medications Al Hydrox/Mg Hydrox/Simethicone 20 ml/ Lidocaine HCl 15 ml 0 ml PO NOW ONE Stop: 01/11/22 17:41 Last Admin: 01/11/22 17:59 Dose: 30 ml Documented by: CHRISTINE Ondansetron HCl (Ondansetron 4 Mg/2 Ml Inj) 4 mg IV NOW ONE Stop: 01/11/22 14:56 Last Admin: 01/11/22 15:30 Dose: 4 mg Documented by: CHRISTINE Pantoprazole Sodium (Pantoprazole 40 Mg Vial) 40 mg IV NOW ONE Stop: 01/11/22 17:38 Last Admin: 01/11/22 17:59 Dose: 40 mg Documented by: CHRISTINE Vital Signs Vital signs: Vital Signs - 8 hr 01/11/22 14:51 Temperature 97.6 F Pulse Rate 110 H Respiratory Rate 18 Blood Pressure 182/100 H Pulse Oximetry 97 <Natividad Collado DO - Last Filed: 01/13/22 07:14> Orders Ordered: Discontinued Medications Al Hydrox/Mg Hydrox/Simethicone 20 ml/ Lidocaine HCl 15 ml 0 ml PO NOW ONE Stop: 01/11/22 17:41 Last Admin: 01/11/22 17:59 Dose: 30 ml Documented by: CHRISTINE Ondansetron HCl (Ondansetron 4 Mg/2 Ml Inj) 4 mg IV NOW ONE Stop: 01/11/22 14:56 Last Admin: 01/11/22 15:30 Dose: 4 mg Documented by: CHRISTINE Pantoprazole Sodium (Pantoprazole 40 Mg Vial) 40 mg IV NOW ONE Stop: 01/11/22 17:38 Last Admin: 01/11/22 17:59 Dose: 40 mg Documented by: CHRISTINE Vital Signs Vital signs: Vital Signs - 8 hr 01/11/22 14:51 Temperature 97.6 F Pulse Rate 110 H Respiratory Rate 18 Blood Pressure 182/100 H Pulse Oximetry 97 MDM - GI Bleed <Zakia Austin PA-C - Last Filed: 01/11/22 21:01> Medical Records Attestation: I reviewed the patient's medical records. Lab Data Attestation: I reviewed the patient's lab results. Lab results narrative: Labs within normal limits Result diagrams: 01/11/22 15:18 01/11/22 15:18 Labs: Lab Results 01/11/22 01/11/22 Range/Units 15:18 15:18 WBC 8.0 (4.5-11.0) X10^3/uL RBC 4.84 (4.0-5.2) X10^6/uL Hgb 15.7 (12.0-16.0) g/dL Hct 44.7 (36-46) % MCV 92.4 (80-100) fL MCH 32.4 (26-34) PG MCHC 35.1 (30-36) % RDW 12.6 (11.6-14.8) % Plt Count 193 (150-400) X10^3/uL Neut % (Auto) 70.3 (50-75) % Lymph % (Auto) 21.8 L (25-40) % [place] % (Auto) 6.3 (3-14) % Eos % (Auto) 0.6 L (2-4) % Baso % (Auto) 1.0 (0-2) % Neut # (Auto) 5600 (7049-7464) /uL Lymph # (Auto) 1700 (7330-0145) /uL [place] # (Auto) 500 (0-900) /uL Eos # (Auto) 0 (0-450) /uL Baso # (Auto) 100 (0-100) /uL Sodium 140 (137-145) mmol/L Potassium 3.6 (3.4-5.1) mmol/L Chloride 102 (98-107) mmol/L Carbon Dioxide 31 (22-32) mmol/L BUN 7 (7-17) mg/dL Creatinine 0.61 (0.52-1.04) mg/dL Estimated GFR > 60 (>60) mL/min BUN/Creatinine Ratio 11.5 (6-22) Glucose 107 H (70-100) mg/dL Calcium 9.6 (8.4-10.2) mg/dL Total Bilirubin 0.8 (0.2-1.3) mg/dL AST 28 (14-36) IU/L ALT 35 H (<35) IU/L Alkaline Phosphatase 97 (38-126) U/L Total Protein 8.3 H (6.3-8.2) g/dL Albumin 4.7 (3.5-5.0) g/dL Globulin 3.6 (1.7-4.1) g/dL Albumin/Globulin Ratio 1.3 (1.0-2.8) MDM Narrative Medical decision making narrative: 56-year-old female with past medical history Charles's esophagus presents to the ED with 1 day of epigastric pain, nausea, vomiting. Concern for anemia versus GI bleed versus GERD versus gastritis versus exacerbation of Charles's esophagus. Will obtain labs, treat symptoms with use GI cocktail and Protonix. Labs were within normal limits, symptoms improved her with Protonix and GI cocktail. Patient's symptoms likely due to GERD/gastritis/esophagitis. Discharge patient home with GI follow-up, ED return precautions. Patient verbalized understanding. <Natividad Collado, DO - Last Filed: 01/13/22 07:14> Lab Data Labs: Lab Results 01/11/22 01/11/22 Range/Units 15:18 15:18 WBC 8.0 (4.5-11.0) X10^3/uL RBC 4.84 (4.0-5.2) X10^6/uL Hgb 15.7 (12.0-16.0) g/dL Hct 44.7 (36-46) % MCV 92.4 (80-100) fL MCH 32.4 (26-34) PG MCHC 35.1 (30-36) % RDW 12.6 (11.6-14.8) % Plt Count 193 (150-400) X10^3/uL Neut % (Auto) 70.3 (50-75) % Lymph % (Auto) 21.8 L (25-40) % [place] % (Auto) 6.3 (3-14) % Eos % (Auto) 0.6 L (2-4) % Baso % (Auto) 1.0 (0-2) % Neut # (Auto) 5600 (8341-2767) /uL Lymph # (Auto) 1700 (2391-3231) /uL [place] # (Auto) 500 (0-900) /uL Eos # (Auto) 0 (0-450) /uL Baso # (Auto) 100 (0-100) /uL Sodium 140 (137-145) mmol/L Potassium 3.6 (3.4-5.1) mmol/L Chloride 102 (98-107) mmol/L Carbon Dioxide 31 (22-32) mmol/L BUN 7 (7-17) mg/dL Creatinine 0.61 (0.52-1.04) mg/dL Estimated GFR > 60 (>60) mL/min BUN/Creatinine Ratio 11.5 (6-22) Glucose 107 H (70-100) mg/dL Calcium 9.6 (8.4-10.2) mg/dL Total Bilirubin 0.8 (0.2-1.3) mg/dL AST 28 (14-36) IU/L ALT 35 H (<35) IU/L Alkaline Phosphatase 97 (38-126) U/L Total Protein 8.3 H (6.3-8.2) g/dL Albumin 4.7 (3.5-5.0) g/dL Globulin 3.6 (1.7-4.1) g/dL Albumin/Globulin Ratio 1.3 (1.0-2.8) Discharge Plan Departure Patient Disposition: Home Clinical Impression: Epigastric abdominal pain Instructions: DI for Epigastric Pain Activity Restrictions/Additional Instructions: You were evaluated in the ED today for abdominal pain, vomiting. S were normal. Your symptoms improved with Protonix, Maalox, viscous lidocaine. You may continue to take Pepcid AC twice a day, omeprazole daily for your symptoms. Your symptoms are likely due to an exacerbation of acid reflux. Return to the ED if you have uncontrollable nausea, vomiting, you were unable to keep down fluids, you continue to vomit significant amounts of blood. Please follow-up with your GI specialist tomorrow. Prescriptions: New ondansetron 4 mg tablet,disintegrating 4 mg PO Q8HR Qty: 14 0RF No Action losartan 50 mg tablet 50 mg PO DAILY 0RF cetirizine 10 mg tablet 10 mg PO DAILY 0RF glipizide 10 mg tablet extended release 24hr 10 mg PO 0RF morphine 30 mg tablet extended release 30 mg PO Q12H 0RF Label Comments: take 1 tablet by mouth every 12 hours bisoprolol fumarate 10 mg tablet 10 mg PO DAILY 0RF Label Comments: take 1 tablet by mouth once daily omeprazole 20 mg capsule,delayed release(DR/EC) 20 mg PO DAILY 0RF epinephrine 0.3 mg/0.3 mL auto-injector 0.3 mg IM PRN PRN (Reason: Allergic Reaction) 0RF metformin 500 mg tablet extended release 24 hr 1,000 mg PO BID 0RF oxycodone 5 mg tablet 5 mg PO TID 0RF Label Comments: take 1 tablet by mouth three times a day rosuvastatin 20 mg tablet 40 mg 0RF pregabalin 100 mg capsule 100 mg PO TID 0RF triamcinolone acetonide 0.1 % cream 1 applic TOPICAL BID 0RF Label Comments: APPLY A THIN LAYER TO THE AFFECTED AREAS TWICE A DAY FOR 2 WEEKS lidocaine 5 % adhesive patch,medicated 1 patch TOP DAILY Qty: 30 0RF Rx Instructions: leave on most painful area for up to 12 hrs cyclobenzaprine 10 mg tablet 10 mg PO BID PRN (Reason: muscle spasm) Qty: 14 0RF Referrals: Ananya Barth PA-C [Primary Care Provider] - Visit Report Forms: Patient Portal/API <Natividad Collado DO - Last Filed: 01/13/22 07:14> Cosign ED Attending Berkleyature Attestation: I was immediately available in the department for consultation. Documentation has been reviewed.
== END 2022-01-11 18:45 | disposition home or self-care (01) ==
PROVIDERS: Emergency Medicine; Emergency Provider Student in an Organized Health Care Education/Training Program; PCP Physician Assistant Medical
DX: R10.13 Epigastric pain (principal); R11.2 Nausea with vomiting, unspecified
CPT/HCPCS: 36415; 80053; 85025; 93005; 93010; 96374; 96375; 99284; C9113; J2405

== ENCOUNTER 2022-05-11 07:57 | Emergency (ER) | payer OTHER, MEDICAID, SELFPAY ==
[2022-05-11] VITALS (8 sets, daily range): BP systolic 184–228; BP diastolic 83–108; PULSE 68–74; RESP 15–23; TEMP 36.7; O2SAT 96–98; BMI 29.3
--- NOTE | 2022-05-11 09:09 | ED_ITS ---
HPI - General Adult General Chief complaint: Hypertension Stated complaint: High BP- 220/110 Time Seen by Provider: 05/11/22 07:59 History of Present Illness HPI narrative: 57-year-old female smoker with history of hypertension, hyperlipidemia and diabetes presents at the request of her primary care provider for evaluation of elevated blood pressure. She had been relatively stable until recently and her primary care provider had switched her to valsartan which she 1st took on Tuesday but stopped after the 1st dose as it gave her rash and joint pain. Her primary care provider had called in another prescription that is waiting for her at the pharmacy but she is been without meds for many days and presents today because her PCP told her to come in if her blood pressure was over 220. In addition she has some frontal headache without obvious provocation, palliation or associated symptoms such as blurred vision, trouble with speech. She does have some tingling in her upper back and neck as well as fingertips but denies extremity weakness or dizziness. She states the headache seems to be related to elevated blood pressures, she is had chronic pain in her left shoulder that is sharp and stabbing and worse with range of motion and palpation which will be evaluated by her primary care provider at a scheduled appointment on . Related Data Home Medications Medication Instructions Recorded Confirmed bisoprolol fumarate 10 mg tablet 10 mg PO DAILY 10/19/19 10/19/19 cetirizine 10 mg tablet 10 mg PO DAILY 10/19/19 10/19/19 epinephrine 0.3 mg/0.3 mL 0.3 mg IM PRN PRN Allergic Reaction 10/19/19 10/19/19 injection, auto-injector glipizide 10 mg tablet, extended 10 mg PO 10/19/19 release 24 hr losartan 50 mg tablet 50 mg PO DAILY 10/19/19 10/19/19 metformin 500 mg tablet,extended 1,000 mg PO BID 10/19/19 10/19/19 release 24 hr morphine 30 mg tablet,extended 30 mg PO Q12H 10/19/19 10/19/19 release omeprazole 20 mg capsule,delayed 20 mg PO DAILY 10/19/19 10/19/19 release oxycodone 5 mg tablet 5 mg PO TID 10/19/19 10/19/19 pregabalin 100 mg capsule 100 mg PO TID 10/19/19 10/19/19 rosuvastatin 20 mg tablet 40 mg 10/19/19 triamcinolone acetonide 0.1 % 1 applic topical BID 10/19/19 10/19/19 topical cream Previous Rx's Medication Instructions Recorded cyclobenzaprine 10 mg tablet 10 mg PO BID PRN muscle spasm #14 10/19/19 tabs lidocaine 5 % topical patch 1 patch topical DAILY #30 ea 10/19/19 ondansetron 4 mg disintegrating 4 mg PO Q8HR #14 tabs 01/11/22 tablet Allergies Allergy/AdvReac Type Severity Reaction Status Date / Time amoxicillin Allergy Unknown Verified 05/11/22 09:10 cortisone AdvReac Unknown Verified 05/11/22 09:10 gabapentin AdvReac Unknown Verified 05/11/22 09:10 Review of Systems Review of Systems Narrative: GENERAL: Denies chills, fatigue, malaise, fever, sweats. HEENT: Denies sinus pain, ear pain, sore throat, difficulty swallowing, dizziness. RESPIRATORY: Denies dyspnea, cough, wheezing, hemoptysis, sputum. CARDIOVASCULAR: See HPI GASTROINTESTINAL: Denies nausea, vomiting, abdominal pain, diarrhea, constipation, melena. : Denies dysuria, frequency, incontinence, hematuria, urinary retention. MUSCULOSKELETAL: denies weakness, joint pain, or bony pain SKIN: Denies rash, skin lesions, or other NEUROLOGIC: See HPI PSYCHIATRIC: No concerning psychosocial issues. 12 point review of systems is negative except for those stated above Patient History Social History Smoking Status: Current every day smoker Smoking Status: Current every day smoker alcohol intake frequency: holidays/special occasions only Substance Use Type: does not use Exam Narrative Exam Narrative: GENERAL: [57] year old patient appears stated age. Well-developed patient, in mild distress. HEAD: Atraumatic. Normocephalic. EYES: Pupils equal round and reactive. Extraocular motions intact. No scleral icterus. No injection or drainage. ENT: Nose without bleeding, purulent drainage. Throat without erythema, tonsillar hypertrophy or exudate. Airway patent. NECK: Trachea midline. Non tender CARDIOVASCULAR: Regular rate and rhythm without murmurs, gallops, or rubs. RESPIRATORY: Clear to auscultation. Breath sounds equal bilaterally. No wheezes, rales, or rhonchi. GASTROINTESTINAL: Abdomen soft, non-tender, nondistended. EXTREMITIES: Left anterior shoulder tender to palpate, full but painful range of motion. No obvious deformity BACK: Nontender without deformity or crepitance. No flank tenderness. NEURO: AOx3. SKIN: No rash or erythema of visible areas Initial Vital Signs Initial Vital Signs: Vital Signs Temperature 98.1 F 05/11/22 09:05 Pulse Rate 71 05/11/22 09:05 Respiratory Rate 15 05/11/22 09:05 Blood Pressure 228/108 H 05/11/22 09:05 Pulse Oximetry 96 05/11/22 09:05 Oxygen Delivery Method 05/11/22 09:05 Course Orders Ordered: Discontinued Medications Labetalol HCl (Labetalol 20 Mg/4 Ml Syringe) 10 mg IV NOW ONE Stop: 05/11/22 09:10 Last Admin: 05/11/22 09:14 Dose: 10 mg Documented By: RADHA Spironolactone (Spironolactone 25 Mg Tablet) 25 mg PO NOW ONE Stop: 05/11/22 10:12 Last Admin: 05/11/22 10:32 Dose: 25 mg Documented By: RADHA(2) Reevaluation(s) Reevaluation #1: patient headache resolved, BP down to 180s. Vital Signs Vital signs: Vital Signs - 8 hr 05/11/22 09:05 05/11/22 09:14 05/11/22 09:06 Temperature 98.1 F Pulse Rate 71 72 Respiratory Rate 15 Blood Pressure 228/108 H 228/108 H 228/108 H Pulse Oximetry 96 Oxygen Delivery Method Room Air 05/11/22 09:06 05/11/22 09:30 05/11/22 09:31 Temperature Pulse Rate 74 71 Respiratory Rate 23 Blood Pressure 197/90 H Pulse Oximetry 96 98 Oxygen Delivery Method 05/11/22 09:31 05/11/22 10:00 05/11/22 10:01 Temperature Pulse Rate 74 68 Respiratory Rate 21 17 Blood Pressure 184/86 H Pulse Oximetry 98 97 Oxygen Delivery Method 05/11/22 10:01 Temperature Pulse Rate 69 Respiratory Rate Blood Pressure Pulse Oximetry 98 Oxygen Delivery Method Medical Decision Making Lab Data Result diagrams: 05/11/22 09:10 05/11/22 09:10 Labs: Lab Results 05/11/22 05/11/22 05/11/22 Range/Units 09:10 09:10 09:10 WBC 7.3 (4.5-11.0) X10^3/uL RBC 4.57 (4.0-5.2) X10^6/uL Hgb 14.9 (12.0-16.0) g/dL Hct 42.9 (36-46) % MCV 93.7 (80-100) fL MCH 32.5 (26-34) PG MCHC 34.7 (30-36) % RDW 13.3 (11.6-14.8) % Plt Count 162 (150-400) X10^3/uL Neut % (Auto) 62.9 (50-75) % Lymph % (Auto) 25.2 (25-40) % [place] % (Auto) 10.0 (3-14) % Eos % (Auto) 1.1 L (2-4) % Baso % (Auto) 0.8 (0-2) % Neut # (Auto) 4600 (5596-8200) /uL Lymph # (Auto) 1800 (8924-7098) /uL [place] # (Auto) 700 (0-900) /uL Eos # (Auto) 100 (0-450) /uL Baso # (Auto) 100 (0-100) /uL PT 12.4 (10.1-12.7) SECONDS INR 1.1 (0.9-1.3) Sodium 138 (137-145) mmol/L Potassium 3.8 (3.4-5.1) mmol/L Chloride 102 (98-107) mmol/L Carbon Dioxide 26 (22-32) mmol/L BUN 9 (7-17) mg/dL Creatinine 0.48 L (0.52-1.04) mg/dL Estimated GFR > 60 (>60) mL/min BUN/Creatinine Ratio 18.8 (6-22) Glucose 166 H (70-100) mg/dL Calcium 8.7 (8.4-10.2) mg/dL Total Bilirubin 0.8 (0.2-1.3) mg/dL AST 43 H (14-36) IU/L ALT 47 H (<35) IU/L Alkaline Phosphatase 91 (38-126) U/L Total Creatine Kinase 56 (30-135) U/L CK-MB (CK-2) TNP CK-MB (CK-2) Rel Index TNP Troponin I < 0.012 (0.01-0.034) ng/mL NT-Pro-B Natriuret Pep 1110 H (<125) pg/mL Total Protein 7.6 (6.3-8.2) g/dL Albumin 4.3 (3.5-5.0) g/dL Globulin 3.3 (1.7-4.1) g/dL Albumin/Globulin Ratio 1.3 (1.0-2.8) Discharge Plan Departure Patient Disposition: Home Clinical Impression: Hypertension Instructions: DI for High Blood Pressure Activity Restrictions/Additional Instructions: *You have been diagnosed with [hypertension] *What to do: *Please continue to take your regular medications as directed. [x ] New medication prescriptions sent to your pharmacy by your PCP and should be ready later today [ ] New medication written as a paper prescription [ ] No new medications given *Please follow up with your primary care provider in 2-3 days, call for an appointment. Let them know you were seen in the Emergency Department and that we ask that you be seen in follow up. We will electronically transmit a record of today's note if your PCP is in our system *If you do not have a primary care provider please contact the [facility] Resource line at [phone]. They will ask some questions about your medical history and help get you set up with a doctor in the community. *Return to Emergency Department if you should have any new, worsening or concerning symptoms Prescriptions: No Action losartan 50 mg tablet 50 mg PO DAILY cetirizine 10 mg tablet 10 mg PO DAILY glipizide 10 mg tablet extended release 24hr 10 mg PO morphine 30 mg tablet extended release 30 mg PO Q12H Label Comments: take 1 tablet by mouth every 12 hours bisoprolol fumarate 10 mg tablet 10 mg PO DAILY Label Comments: take 1 tablet by mouth once daily omeprazole 20 mg capsule,delayed release(DR/EC) 20 mg PO DAILY epinephrine 0.3 mg/0.3 mL auto-injector 0.3 mg IM PRN PRN (Reason: Allergic Reaction) metformin 500 mg tablet extended release 24 hr 1,000 mg PO BID oxycodone 5 mg tablet 5 mg PO TID Label Comments: take 1 tablet by mouth three times a day rosuvastatin 20 mg tablet 40 mg pregabalin 100 mg capsule 100 mg PO TID triamcinolone acetonide 0.1 % cream 1 applic TOPICAL BID Label Comments: APPLY A THIN LAYER TO THE AFFECTED AREAS TWICE A DAY FOR 2 WEEKS lidocaine 5 % adhesive patch,medicated 1 patch TOP DAILY Qty: 30 0RF Rx Instructions: leave on most painful area for up to 12 hrs cyclobenzaprine 10 mg tablet 10 mg PO BID PRN (Reason: muscle spasm) Qty: 14 0RF ondansetron 4 mg tablet,disintegrating 4 mg PO Q8HR Qty: 14 0RF Referrals: Ananya Barth PA-C [Primary Care Provider] - Visit Report Forms: Patient Portal/API
--- NOTE | 2022-05-11 09:09 | DI.RAD.S_ITS ---
PROCEDURE: XR CHEST 1V INDICATIONS: HIGH BLOOD PRESSURE TECHNIQUE: One view of the chest was acquired. COMPARISON: [facility], CR, XR CHEST 1V, 12/18/2019, 11:51. FINDINGS: Surgical changes and devices: None. Lungs and pleura: Lungs are clear. No pleural effusions or pneumothorax. Mediastinum: Mediastinal contours appear normal. Heart size is enlarged. Bones and chest wall: No suspicious bony lesions. Overlying soft tissues appear unremarkable. IMPRESSION: No acute pulmonary process. Dictated by: Natalie Nath M.D. on 05/11/2022 at 9:22 Approved by: Natalie Nath M.D. on 05/11/2022 at 9:22
[2022-05-11] MEDS: LABETALOL 20 MG/4 ML SYRINGE 10 MG IV (09:14)
[2022-05-11 09:37] LABS: Add Manual Diff / Slide Review NO; Basophils Absolute Auto 100 /uL (0-100); Basophils Percent Auto 0.8 % (0-2); Eosinophils Absolute Auto 100 /uL (0-450); Eosinophils Percent Auto 1.1 % (2-4); Hematocrit 42.9 % (36-46); Hemoglobin 14.9 g/dL (12.0-16.0); Lymphocytes Absolute Auto 1800 /uL (1100-4500); Lymphocytes Percent Auto 25.2 % (25-40); Mean Corpuscular HGB Conc 34.7 % (30-36); Mean Corpuscular Hemoglobin 32.5 PG (26-34); Mean Corpuscular Volume 93.7 fL (80-100); Monocytes Absolute Auto 700 /uL (0-900); Neutrophils Absolute Auto 4600 /uL (1500-7000); Neutrophils Percent Auto 62.9 % (50-75); Platelet Count 162 X10^3/uL (150-400); Red Blood Cell Count 4.57 X10^6/uL (4.0-5.2); Red Cell Distribution Width 13.3 % (11.6-14.8); White Blood Cell Count 7.3 X10^3/uL (4.5-11.0)
[2022-05-11 09:48] LABS: INR 1.1 (0.9-1.3); Prothrombin Time 12.4 SECONDS (10.1-12.7)
[2022-05-11 09:54] LABS: Alanine Aminotransferase 47 IU/L (<35); Albumin 4.3 g/dL (3.5-5.0); Albumin Globulin Ratio 1.3 (1.0-2.8); Alkaline Phosphatase 91 U/L (38-126); Aspartate Aminotransferase 43 IU/L (14-36); BUN Creatinine Ratio 18.8 (6-22); Bilirubin Total 0.8 mg/dL (0.2-1.3); Blood Urea Nitrogen 9 mg/dL (7-17); Calcium 8.7 mg/dL (8.4-10.2); Carbon Dioxide 26 mmol/L (22-32); Chloride 102 mmol/L (98-107); Creatine Kinase 56 U/L (30-135); Estimated Glomerular Filt Rate > 60 mL/min (>60); Globulin 3.3 g/dL (1.7-4.1); Glucose 166 mg/dL (70-100); HEMOLYSIS < 15 (0-50); Potassium 3.8 mmol/L (3.4-5.1); Sodium 138 mmol/L (137-145); Total Protein 7.6 g/dL (6.3-8.2)
[2022-05-11 10:06] LABS: NT-proBNP (BNP-Adult 18+) 1110 pg/mL (<125); Troponin I < 0.012 ng/mL (0.01-0.034)
[2022-05-11] MEDS: SPIRONOLACTONE 25 MG TABLET PO (10:32)
== END 2022-05-11 10:43 | disposition home or self-care (01) ==
PROVIDERS: Emergency Provider Emergency Medicine; PCP Physician Assistant Medical
DX: I10 Essential (primary) hypertension (principal)
CPT/HCPCS: 36415; 71045; 80053; 82550; 83880; 84484; 85025; 85610; 93005; 96374; 99284

== ENCOUNTER 2022-09-11 03:13 | Emergency (ER) | payer OTHER, MEDICAID, SELFPAY ==
[2022-09-11 03:41] VITALS: BP 150/71; PULSE 78; RESP 16; TEMP 35.9; O2SAT 97; BMI 30.7
== END 2022-09-11 04:17 | disposition left against medical advice (07) ==
PROVIDERS: Emergency Provider Emergency Medicine; PCP Physician Assistant Medical
DX: R06.02 Shortness of breath (principal)
CPT/HCPCS: 99281

== ENCOUNTER 2022-09-11 05:30 | Emergency (ER) | payer OTHER, MEDICAID, SELFPAY ==
[2022-09-11 06:15] VITALS: BP 153/73; PULSE 83; RESP 17; O2SAT 98; BMI 30.9
--- NOTE | 2022-09-11 07:32 | DI.RAD.S_ITS ---
PROCEDURE: XR CHEST 1V INDICATIONS: SOb TECHNIQUE: One view of the chest was acquired. COMPARISON: [facility], CR, XR CHEST 1V, 05/11/2022, 9:08. FINDINGS: Surgical changes and devices: None. Lungs and pleura: Lungs are clear. No pleural effusions or pneumothorax. Mediastinum: Mediastinal contours appear normal. Heart size is normal. Bones and chest wall: No suspicious bony lesions. Overlying soft tissues appear unremarkable. IMPRESSION: No acute cardiopulmonary abnormality. Dictated by: Agustin Mandel M.D. on 09/11/2022 at 7:50 Approved by: Agustin Mandel M.D. on 09/11/2022 at 7:51
--- NOTE | 2022-09-11 07:50 | ED.GENADULT ---
HPI - General Adult General Chief complaint: Shortness of Breath/Dyspnea Stated complaint: SOB Time Seen by Provider: 09/11/22 07:08 Source: patient Mode of arrival: Ambulatory Limitations: no limitations History of Present Illness HPI narrative: 57-year-old female. Is a smoker. Has neuropathy and restless leg. Takes daily pain medication. Is here for evaluation of shortness of breath. She states she woke up this morning and went to go use the restroom when she started to feel like that she could not take a deep breath. She is having a cough but this is not new. No fevers. She did vomit 1 time this morning. Had an episode of diarrhea as well. She was able to take her pain medication. She did come to the emergency department this morning and left without being seen. She states that it was because her legs were hurting so she went home and laid back in bed and was still short of breath so she came back to the emergency department. She denies chest pain. Related Data Home Medications Medication Instructions Recorded Confirmed bisoprolol fumarate 10 mg tablet 10 mg PO DAILY 10/19/19 10/19/19 cetirizine 10 mg tablet 10 mg PO DAILY 10/19/19 10/19/19 epinephrine 0.3 mg/0.3 mL 0.3 mg IM PRN PRN Allergic Reaction 10/19/19 10/19/19 injection, auto-injector glipizide 10 mg tablet, extended 10 mg PO 10/19/19 release 24 hr losartan 50 mg tablet 50 mg PO DAILY 10/19/19 10/19/19 metformin 500 mg tablet,extended 1,000 mg PO BID 10/19/19 10/19/19 release 24 hr morphine 30 mg tablet,extended 30 mg PO Q12H 10/19/19 10/19/19 release omeprazole 20 mg capsule,delayed 20 mg PO DAILY 10/19/19 10/19/19 release oxycodone 5 mg tablet 5 mg PO TID 10/19/19 10/19/19 pregabalin 100 mg capsule 100 mg PO TID 10/19/19 10/19/19 rosuvastatin 20 mg tablet 40 mg 10/19/19 triamcinolone acetonide 0.1 % 1 applic topical BID 10/19/19 10/19/19 topical cream Previous Rx's Medication Instructions Recorded cyclobenzaprine 10 mg tablet 10 mg PO BID PRN muscle spasm #14 10/19/19 tabs lidocaine 5 % topical patch 1 patch topical DAILY #30 ea 10/19/19 ondansetron 4 mg disintegrating 4 mg PO Q8HR #14 tabs 01/11/22 tablet Allergies Allergy/AdvReac Type Severity Reaction Status Date / Time amoxicillin Allergy Unknown Verified 05/11/22 09:10 cortisone AdvReac Unknown Verified 05/11/22 09:10 gabapentin AdvReac Unknown Verified 05/11/22 09:10 Review of Systems Constitutional Constitutional: Reports system reviewed and no additional complaints, except as documented Cardiovascular Cardiovascular: Reports system reviewed and no additional complaints, except as documented Respiratory Respiratory: Reports system reviewed and no additional complaints, except as documented Gastrointestinal Gastrointestinal: Reports system reviewed and no additional complaints, except as documented Genitourinary Genitourinary: Reports system reviewed and no additional complaints, except as documented Neurologic Neurologic: Reports system reviewed and no additional complaints, except as documented Hematologic/Lymphatic On Anticoagulants: No Patient History Medical History Neuropathy Social History Smoking Status: Current every day smoker Smoking Status: Current every day smoker alcohol intake frequency: a few times a week Substance Use Type: does not use Exam Initial Vital Signs Initial Vital Signs: Vital Signs Pulse Rate 83 09/11/22 06:15 Respiratory Rate 17 09/11/22 06:15 Blood Pressure 153/73 H 09/11/22 06:15 Pulse Oximetry 98 09/11/22 06:15 Oxygen Delivery Method 09/11/22 06:15 Const General: cooperative, comfortable and No ill appearing [facility] Head: normal to inspection and normocephalic Resp Effort & Inspection: normal respiratory effort Auscultation: clear to auscultation bilaterally Cardio Rate: regular rate Rhythm: regular rhythm GI Inspection: normal to inspection Skin General: no rashes or lesions noted Lesions: no lesions Neuro General: patient alert, patient awake and moves all extremities Extrem General: normal to inspection and capillary refill normal Course Orders Ordered: ED Orders 09/11/22 07:32 XR chest 1V Stat 09/11/22 08:19 Covid-19 + FLU A/B + RSV - PCR Stat 09/11/22 08:46 EKG-12 Lead Stat Discontinued Medications Ondansetron HCl (Ondansetron 4 Mg Odt) 4 mg SL NOW ONE Stop: 09/11/22 07:50 Last Admin: 09/11/22 08:19 Dose: 4 mg Documented By: BILLIE Vital Signs Vital signs: Vital Signs - 8 hr 09/11/22 06:15 09/11/22 07:58 09/11/22 08:10 Pulse Rate 83 75 75 Respiratory Rate 17 22 24 Blood Pressure 153/73 H 141/66 H Pulse Oximetry 98 98 97 Oxygen Delivery Method Room Air Room Air 09/11/22 08:30 09/11/22 08:30 09/11/22 09:00 Pulse Rate 80 80 Respiratory Rate 38 H 33 H Blood Pressure 140/67 Pulse Oximetry 98 98 Oxygen Delivery Method Medical Decision Making Lab Data Labs: Lab Results 09/11/22 Range/Units 08:19 SARS-CoV-2 (PCR) Negative (Negative) Influenza A (RT-PCR) Flu a negative (NEGATIVE) Influenza B (RT-PCR) Flu b negative (NEGATIVE) RSV (PCR) Negative (Negative) Imaging Data Chest x-ray: Radiologist's Impression: [address] [address] XRay Report Signed Patient: Sabrina Hammonds MR#: [id number] : 1965 Acct:[id number] Age/Sex: 57 / F Date of Service: 09/11/22 Loc: Accession Number: [id number] ?? Procedure: XR chest 1V Ordering Provider: Deven Garay D.O. PROCEDURE:? XR CHEST 1V ? INDICATIONS:? SOb ? TECHNIQUE:? One view of the chest was acquired.? ? COMPARISON:? [facility], , XR CHEST 1V, 05/11/2022, 9:08. ? FINDINGS:? ? Surgical changes and devices:? None.? ? Lungs and pleura:? Lungs are clear.? No pleural effusions or pneumothorax.? ? Mediastinum:? Mediastinal contours appear normal.? Heart size is normal.? ? Bones and chest wall:? No suspicious bony lesions.? Overlying soft tissues appear unremarkable.? ? IMPRESSION:? No acute cardiopulmonary abnormality. ? ? ? Dictated by: Agustin Mandel M.D. on 09/11/2022 at 7:50 ? ? Approved by: Agustin Mandel M.D. on 09/11/2022 at 7:51 ECG Data Attestation: I personally reviewed and interpreted this ECG as follows: Interpretation: Sinus rhythm Ventricular rate is 76 Normal axis Normal QTC Nonspecific ST T wave changes MDM Narrative Medical decision making narrative: Patient is not hypoxic. Not tachypneic. EKG is unremarkable. Chest x-ray is unremarkable. COVID RSV and flu were negative. She is a clear lung exam. She is in no respiratory distress. She states that every time she tries to swallow she starts to cough and feels like she can not breathe although she is tolerating oral intake and did drink water in the room in front of me. She does have a history of Charles's esophagus. Has been taking Tums. She also takes famotidine. Does not appear to be an infectious process. No indication for antibiotics. Low suspicion for ACS based on her presentation. She could very well have a viral respiratory infection that was not tested for here in the ER. I did discuss this with her. Informed her that this would not be an indication for us to start any antibiotics because these are viral infections. We talked about being on decongestants. She states she does take a Claritin. She stated that she tried some Vicks both on her chest and put it in her nose last evening. She did not think that this helped her. We discussed that she could try some Nasonex or Flonase but then she told me she did not like putting anything in her nose. She also could be having reflux. We discussed starting on a proton pump inhibitor. Patient is safe for home discharge. She was given return precautions. Discharge Plan Departure Patient Disposition: Home Clinical Impression: Shortness of Breath Instructions: How to Manage Shortness of Breath Activity Restrictions/Additional Instructions: Your workup here in the emergency department is reassuring without any indication that you have an infection that would require antibiotics. Your EKG is unremarkable as well. Your oxygen saturations are normal. You can continue to try [id number] decongestants. You can also try nasal spray such as Flonase or Nasonex. Continue with your GI medications. You may want to add a liquid medicines such as Maalox as well. Contact your primary doctor for follow-up. Prescriptions: No Action losartan 50 mg tablet 50 mg PO DAILY cetirizine 10 mg tablet 10 mg PO DAILY glipizide 10 mg tablet extended release 24hr 10 mg PO morphine 30 mg tablet extended release 30 mg PO Q12H Label Comments: take 1 tablet by mouth every 12 hours bisoprolol fumarate 10 mg tablet 10 mg PO DAILY Label Comments: take 1 tablet by mouth once daily omeprazole 20 mg capsule,delayed release(DR/EC) 20 mg PO DAILY epinephrine 0.3 mg/0.3 mL auto-injector 0.3 mg IM PRN PRN (Reason: Allergic Reaction) metformin 500 mg tablet extended release 24 hr 1,000 mg PO BID oxycodone 5 mg tablet 5 mg PO TID Label Comments: take 1 tablet by mouth three times a day rosuvastatin 20 mg tablet 40 mg pregabalin 100 mg capsule 100 mg PO TID triamcinolone acetonide 0.1 % cream 1 applic TOPICAL BID Label Comments: APPLY A THIN LAYER TO THE AFFECTED AREAS TWICE A DAY FOR 2 WEEKS lidocaine 5 % adhesive patch,medicated 1 patch TOP DAILY Qty: 30 0RF Rx Instructions: leave on most painful area for up to 12 hrs cyclobenzaprine 10 mg tablet 10 mg PO BID PRN (Reason: muscle spasm) Qty: 14 0RF ondansetron 4 mg tablet,disintegrating 4 mg PO Q8HR Qty: 14 0RF Referrals: Ananya Barth PA-C [Primary Care Provider] - Stand Alone Forms: Patient Portal/API
[2022-09-11 07:58] VITALS: BP 141/66; PULSE 75; RESP 22; O2SAT 98
[2022-09-11 08:10] VITALS: PULSE 75; RESP 24; O2SAT 97
[2022-09-11] MEDS: ONDANSETRON 4 MG ODT SL (08:19)
[2022-09-11 08:30] VITALS: BP 140/67; PULSE 80; RESP 38; O2SAT 98
[2022-09-11 09:00] VITALS: PULSE 80; RESP 33; O2SAT 98
[2022-09-11 09:36] LABS: Influenza A - CEPHEID Flu A NEGATIVE (NEGATIVE); Influenza B - CEPHEID Flu B NEGATIVE (NEGATIVE); Respiratory Syncytial Virus Negative (Negative)
[2022-09-11 10:11] LABS: COVID-19 CEPHEID 4-PLEX PCR Negative (Negative)
== END 2022-09-11 10:41 | disposition home or self-care (01) ==
PROVIDERS: Emergency Provider Emergency Medicine; PCP Physician Assistant Medical
DX: R06.02 Shortness of breath (principal)
CPT/HCPCS: 0241U; 71045; 93005; 93010; 99281; 99283

== ENCOUNTER 2024-02-02 11:28 | Emergency (ER) | payer OTHER, MEDICAID, SELFPAY ==
[2024-02-02 11:32] VITALS: BP 147/75; PULSE 93; RESP 16; TEMP 35.7; O2SAT 97; BMI 28.4
--- NOTE | 2024-02-02 11:41 | DI.CT.S_ITS ---
PROCEDURE: CT ABDOMEN PELVIS W CON INDICATIONS: Eval for small-bowel obstruction TECHNIQUE: After the administration of intravenous contrast, axial sections acquired from the lung bases to the pubic symphysis. Coronal and sagittal reformats were performed. For radiation dose reduction, the following was used: automated exposure control, adjustment of mA and/or kV according to patient size. COMPARISON: None. FINDINGS: Image quality: Diagnostic. Lower Chest: No significant findings. ABDOMEN: Liver: No solid mass. Flash filling of a probable hemangioma in the right lobe of the dome of the liver. Reference axial images 8 and 9 and series 2 and coronal image 27 of series 4. No suspicious lesions. Gallbladder: Gallbladder surgically absent. Biliary ducts: Extrahepatic duct and central intrahepatic ducts are dilated. No obstructing lesion noted in the head of the pancreas. Mild prominence of the pancreatic duct. Pancreas: No ductal dilation. Spleen: Size is within normal limits. Adrenal Glands: 1.3 cm probable left adrenal adenoma. Kidneys and Ureters: No hydronephrosis. No solid mass. No complex renal cystic lesion which requires follow up. Stomach and Bowel: Normal colonic caliber, without significant wall thickening. Moderate rectal fecal impaction. Large fecal load in the descending colon. Liquid bowel contents in the transverse colon and right colon. Normal caliber small bowel. No small bowel obstruction. Peritoneum: No abnormal intraperitoneal fluid. No free air. Ventral Wall: No significant ventral hernia. Abdominal Nodes: No retroperitoneal or mesenteric adenopathy by size criteria. Vessels: Aorta and inferior vena cava are normal in size. PELVIS: Pelvic Organs: Unremarkable. Bladder: Moderate to severe bladder distension without bladder wall thickening. Pelvic Nodes: No enlarged lymph nodes. Miscellaneous: No inguinal hernias are seen. Bones: No aggressive osseous abnormality. IMPRESSION: 1. Moderate rectal fecal impaction. 2. No bowel obstruction identified. 3. Remote cholecystectomy. Dilatation of the biliary tree is most likely a chronic finding. If clinically suspect biliary obstruction, consider MRCP. 4. Small left adrenal nodule, likely a small adenoma. 5. Distended bladder. Dictated by: Garfield Mar M.D. on 02/02/2024 at 13:20 Approved by: Garfield Mar M.D. on 02/02/2024 at 13:38
--- NOTE | 2024-02-02 11:51 | ED_ITS ---
HPI - General Adult General Chief complaint: Abdominal Pain Stated complaint: severe constipation t-5, feels very sick Time Seen by Provider: 02/02/24 11:40 Source: patient Mode of arrival: Ambulatory Limitations: no limitations History of Present Illness HPI narrative: 58-year-old female. Has a [id number] diabetic. Started on Ozempic and had some other diabetes medication changes over the past couple weeks. States it has caused her to have issues with constipation. She did have a small bowel movement a couple days ago but has had nothing since then. Is having nausea but no vomiting. No fevers. No urinary symptoms. Has tried oral laxatives without any improvement. She has had her gallbladder removed but no other abdominal surgeries. Reports that her abdomen is distended. Related Data Home Medications Medication Instructions Recorded Confirmed bisoprolol fumarate 10 mg tablet 10 mg PO DAILY 10/19/19 10/19/19 cetirizine 10 mg tablet 10 mg PO DAILY 10/19/19 10/19/19 epinephrine 0.3 mg/0.3 mL 0.3 mg IM PRN PRN Allergic Reaction 10/19/19 10/19/19 injection, auto-injector glipizide 10 mg tablet, extended 10 mg PO 10/19/19 release 24 hr losartan 50 mg tablet 50 mg PO DAILY 10/19/19 10/19/19 metformin 500 mg tablet,extended 1,000 mg PO BID 10/19/19 10/19/19 release 24 hr morphine 30 mg tablet,extended 30 mg PO Q12H 10/19/19 10/19/19 release omeprazole 20 mg capsule,delayed 20 mg PO DAILY 10/19/19 10/19/19 release oxycodone 5 mg tablet 5 mg PO TID 10/19/19 10/19/19 pregabalin 100 mg capsule 100 mg PO TID 10/19/19 10/19/19 rosuvastatin 20 mg tablet 40 mg 10/19/19 triamcinolone acetonide 0.1 % 1 applic topical BID 10/19/19 10/19/19 topical cream Previous Rx's Medication Instructions Recorded cyclobenzaprine 10 mg tablet 10 mg PO BID PRN muscle spasm #14 10/19/19 tabs lidocaine 5 % topical patch 1 patch topical DAILY #30 ea 10/19/19 ondansetron 4 mg disintegrating 4 mg PO Q8HR #14 tabs 01/11/22 tablet Allergies Allergy/AdvReac Type Severity Reaction Status Date / Time amoxicillin Allergy Unknown Verified 02/02/24 11:36 cortisone AdvReac Unknown Verified 02/02/24 11:36 gabapentin AdvReac Unknown Verified 02/02/24 11:36 Review of Systems Review of Systems Narrative: See HPI Patient History Medical History Neuropathy Social History Smoking Status: Current every day smoker Smoking Status: Current every day smoker alcohol intake frequency: a few times a week Substance Use Type: does not use Exam Initial Vital Signs Initial Vital Signs: Vital Signs Temperature 96.2 F L 02/02/24 11:32 Pulse Rate 93 H 02/02/24 11:32 Respiratory Rate 16 02/02/24 11:32 Blood Pressure 147/75 H 02/02/24 11:32 Pulse Oximetry 97 02/02/24 11:32 Oxygen Delivery Method Room Air 02/02/24 11:32 Const General: cooperative and comfortable HENMT Head: normal to inspection and normocephalic Resp Effort & Inspection: normal respiratory effort Auscultation: clear to auscultation bilaterally Cardio Rate: regular rate Rhythm: regular rhythm GI Inspection: distended Palpation: soft, No firm, No guarding and tender Skin General: no rashes or lesions noted Neuro General: patient alert and patient awake Extrem General: capillary refill normal Course Orders Ordered: ED Orders 02/02/24 11:41 CT abdomen pelvis w con Stat 02/02/24 11:59 Complete Blood Count AUTO DIFF Stat Comprehensive Metabolic Panel Stat Lipase Stat Discontinued Medications Ketorolac Tromethamine (Ketorolac 30 Mg/Ml Vial) 30 mg IV NOW ONE Stop: 02/02/24 14:39 Last Admin: 02/02/24 14:46 Dose: 30 mg Documented By: TINO Lactulose (Lactulose 20 Gm/30 Ml Solution) 20 gm PO NOW ONE Stop: 02/02/24 14:39 Last Admin: 02/02/24 14:46 Dose: 20 gm Documented By: TINO Sodium Biphosphate/Sodium Phosphate (Fleets Enema) 1 each AL NOW ONE Stop: 02/02/24 13:57 Last Admin: 02/02/24 14:12 Dose: 1 each Documented By: AYO Vital Signs Vital signs: Vital Signs - 8 hr 02/02/24 11:32 02/02/24 15:50 Temperature 96.2 F L 98.6 F Pulse Rate 93 H 89 Respiratory Rate 16 20 Blood Pressure 147/75 H 146/73 H Pulse Oximetry 97 97 Oxygen Delivery Method Room Air Room Air Medical Decision Making Lab Data Lab results reviewed: Yes I reviewed the patient's lab results. 02/02/24 11:59 02/02/24 11:59 Labs: Lab Results 02/02/24 Range/Units 11:59 WBC 12.1 H (4.5-11.0) X10^3/uL RBC 4.61 (4.0-5.2) X10^6/uL Hgb 14.9 (12.0-16.0) g/dL Hct 42.9 (36-46) % MCV 93.0 (80-100) fL MCH 32.3 (26-34) PG MCHC 34.7 (30-36) % RDW 12.7 (11.6-14.8) % Plt Count 252 (150-400) X10^3/uL Neut % (Auto) 75.0 (50-75) % Lymph % (Auto) 18.0 L (25-40) % Liberty % (Auto) 5.5 (3-14) % Eos % (Auto) 0.7 L (2-4) % Baso % (Auto) 0.8 (0-2) % Neut # (Auto) 9000 H (2188-1134) /uL Lymph # (Auto) 2200 (0028-3015) /uL Liberty # (Auto) 700 (0-900) /uL Eos # (Auto) 100 (0-450) /uL Baso # (Auto) 100 (0-100) /uL Sodium 134 L (137-145) mmol/L Potassium 4.8 (3.4-5.1) mmol/L Chloride 101 (98-107) mmol/L Carbon Dioxide 23 (22-32) mmol/L BUN 7 (7-17) mg/dL Creatinine 0.61 (0.52-1.04) mg/dL Estimated GFR > 60 (>60) mL/min BUN/Creatinine Ratio 11.5 (6-22) Glucose 189 H (70-100) mg/dL Calcium 9.1 (8.4-10.2) mg/dL Total Bilirubin 1.2 (0.2-1.3) mg/dL AST 30 (14-36) IU/L ALT 17 (<35) IU/L Alkaline Phosphatase 89 (38-126) U/L Total Protein 8.3 H (6.3-8.2) g/dL Albumin 4.7 (3.5-5.0) g/dL Globulin 3.6 (1.7-4.1) g/dL Albumin/Globulin Ratio 1.3 (1.0-2.8) Lipase 71 (23-300) U/L Imaging Data CT scan - abdomen/pelvis: Radiologist's Impression: PROCEDURE: CT ABDOMEN PELVIS W CON INDICATIONS: Eval for small-bowel obstruction TECHNIQUE: After the administration of intravenous contrast, axial sections acquired from the lung bases to the pubic symphysis. Coronal and sagittal reformats were performed. For radiation dose reduction, the following was used: automated exposure control, adjustment of mA and/or kV according to patient size. COMPARISON: None. FINDINGS: Image quality: Diagnostic. Lower Chest: No significant findings. ABDOMEN: Liver: No solid mass. Flash filling of a probable hemangioma in the right lobe of the dome of the liver. Reference axial images 8 and 9 and series 2 and coronal image 27 of series 4. No suspicious lesions. Gallbladder: Gallbladder surgically absent. Biliary ducts: Extrahepatic duct and central intrahepatic ducts are dilated. No obstructing lesion noted in the head of the pancreas. Mild prominence of the pancreatic duct. Pancreas: No ductal dilation. Spleen: Size is within normal limits. Adrenal Glands: 1.3 cm probable left adrenal adenoma. Kidneys and Ureters: No hydronephrosis. No solid mass. No complex renal cystic lesion which requires follow up. Stomach and Bowel: Normal colonic caliber, without significant wall thickening. Moderate rectal fecal impaction. Large fecal load in the descending colon. Liquid bowel contents in the transverse colon and right colon. Normal caliber small bowel. No small bowel obstruction. Peritoneum: No abnormal intraperitoneal fluid. No free air. Ventral Wall: No significant ventral hernia. Abdominal Nodes: No retroperitoneal or mesenteric adenopathy by size criteria. Vessels: Aorta and inferior vena cava are normal in size. PELVIS: Pelvic Organs: Unremarkable. Bladder: Moderate to severe bladder distension without bladder wall thickening. Pelvic Nodes: No enlarged lymph nodes. Miscellaneous: No inguinal hernias are seen. Bones: No aggressive osseous abnormality. IMPRESSION: 1. Moderate rectal fecal impaction. 2. No bowel obstruction identified. 3. Remote cholecystectomy. Dilatation of the biliary tree is most likely a chronic finding. If clinically suspect biliary obstruction, consider MRCP. 4. Small left adrenal nodule, likely a small adenoma. 5. Distended bladder. MDM Narrative Medical decision making narrative: CT scan shows no signs of bowel obstruction. After enema here in the emergency department she reports a complete resolution of symptoms after a large bowel movement. She was feeling much better. Will discharge patient home. Discharge Plan Departure Patient Disposition: Home Clinical Impression: Constipation Instructions: DI for Constipation Activity Restrictions/Additional Instructions: I do recommend that you consider starting on a good bowel regimen to include stool softeners and laxatives. Continue all of your medications as directed. Return to the emergency department for new or worsening symptoms. Prescriptions: No Action losartan 50 mg tablet 50 mg PO DAILY cetirizine 10 mg tablet 10 mg PO DAILY glipizide 10 mg tablet extended release 24hr 10 mg PO morphine 30 mg tablet extended release 30 mg PO Q12H Patient Comments: take 1 tablet by mouth every 12 hours bisoprolol fumarate 10 mg tablet 10 mg PO DAILY Patient Comments: take 1 tablet by mouth once daily omeprazole 20 mg capsule,delayed release(DR/EC) 20 mg PO DAILY epinephrine 0.3 mg/0.3 mL auto-injector 0.3 mg IM PRN PRN (Reason: Allergic Reaction) metformin 500 mg tablet extended release 24 hr 1,000 mg PO BID oxycodone 5 mg tablet 5 mg PO TID Patient Comments: take 1 tablet by mouth three times a day rosuvastatin 20 mg tablet 40 mg pregabalin 100 mg capsule 100 mg PO TID triamcinolone acetonide 0.1 % cream 1 applic TOPICAL BID Patient Comments: APPLY A THIN LAYER TO THE AFFECTED AREAS TWICE A DAY FOR 2 WEEKS lidocaine 5 % adhesive patch,medicated 1 patch TOP DAILY Qty: 30 0RF Rx Instructions: leave on most painful area for up to 12 hrs cyclobenzaprine 10 mg tablet 10 mg PO BID PRN (Reason: muscle spasm) Qty: 14 0RF ondansetron 4 mg tablet,disintegrating 4 mg PO Q8HR Qty: 14 0RF Referrals: Tab,Ananya, PA-C [Primary Care Provider] - Stand Alone Forms: Patient Portal/API
[2024-02-02 12:07] LABS: Add Manual Diff / Slide Review NO; Basophils Absolute Auto 100 /uL (0-100); Basophils Percent Auto 0.8 % (0-2); Eosinophils Absolute Auto 100 /uL (0-450); Eosinophils Percent Auto 0.7 % (2-4); Hematocrit 42.9 % (36-46); Hemoglobin 14.9 g/dL (12.0-16.0); Lymphocytes Absolute Auto 2200 /uL (1100-4500); Mean Corpuscular HGB Conc 34.7 % (30-36); Mean Corpuscular Hemoglobin 32.3 PG (26-34); Monocytes Absolute Auto 700 /uL (0-900); Monocytes Percent Auto 5.5 % (3-14); Neutrophils Absolute Auto 9000 /uL (1500-7000); Platelet Count 252 X10^3/uL (150-400); Red Blood Cell Count 4.61 X10^6/uL (4.0-5.2); Red Cell Distribution Width 12.7 % (11.6-14.8); White Blood Cell Count 12.1 X10^3/uL (4.5-11.0)
[2024-02-02 12:19] LABS: Alanine Aminotransferase 17 IU/L (<35); Albumin 4.7 g/dL (3.5-5.0); Albumin Globulin Ratio 1.3 (1.0-2.8); Alkaline Phosphatase 89 U/L (38-126); Aspartate Aminotransferase 30 IU/L (14-36); BUN Creatinine Ratio 11.5 (6-22); Bilirubin Total 1.2 mg/dL (0.2-1.3); Blood Urea Nitrogen 7 mg/dL (7-17); Calcium 9.1 mg/dL (8.4-10.2); Carbon Dioxide 23 mmol/L (22-32); Chloride 101 mmol/L (98-107); Estimated Glomerular Filt Rate > 60 mL/min (>60); Globulin 3.6 g/dL (1.7-4.1); Glucose 189 mg/dL (70-100); HEMOLYSIS 32 (0-50); Lipase 71 U/L (23-300); Potassium 4.8 mmol/L (3.4-5.1); Sodium 134 mmol/L (137-145); Total Protein 8.3 g/dL (6.3-8.2)
[2024-02-02] MEDS: FLEETS ENEMA 1 EACH PR (14:12)
[2024-02-02] MEDS: KETOROLAC 30 MG/ML VIAL IV (14:46)
[2024-02-02] MEDS: LACTULOSE 20 GM/30 ML SOLUTION PO (14:46)
--- NOTE | 2024-02-02 15:12 | PC.NURSE ---
Pt up to [facility]sc after lactulose and enema. Pt produced large, hard, formed and painful BM. Pt states that she feels like there is much more but it hurts to push. Pt given ketorolac for pain.
--- NOTE | 2024-02-02 15:34 | PC.NURSE ---
Pt produced 2nd large BM and states that she feels so much better. Pt states that her abd pain as resolved.
[2024-02-02 15:50] VITALS: BP 146/73; PULSE 89; RESP 20; TEMP 37; O2SAT 97
== END 2024-02-02 15:52 | disposition home or self-care (01) ==
PROVIDERS: Emergency Provider Emergency Medicine; PCP Physician Assistant Medical
DX: K59.00 Constipation, unspecified (principal)
CPT/HCPCS: 36415; 74177; 80053; 83690; 85025; 96374; 99284; J1885; Q9967